=== PATIENT | female | born 1970 | race Caucasian/White ===

== ENCOUNTER 2016-07-19 06:29 | Inpatient (IN) | payer OTHER ==
[2016-07-19 07:09] LABS: Basophils % (Auto) 0.6 % (0.0-1.8); Eosinophils % (Auto) 0.7 % (0.0-4.3); Mean Corpuscular HGB Conc 32 % (30-34); Mean Corpuscular Hemoglobin 28 pg (28-32); Mean Corpuscular Volume 86 fl (79-97); Platelet Count 235 K/mm3 (140-440); Red Blood Count 4.32 M/mm3 (3.65-5.03); Red Cell Distribution Width 15.4 % (13.2-15.2); White Blood Count 7.7 K/mm3 (4.5-11.0)
[2016-07-19 07:21] LABS: INR 1.17 (0.87-1.13); Partial Thromboplastin Time 28.9 Sec. (24.2-36.6)
[2016-07-19 07:24] LABS: Anion Gap 24 mmol/L; Blood Urea Nitrogen 9 mg/dL (7-17); Carbon Dioxide 20 mmol/L (22-30); Chloride 104.4 mmol/L (98-107); Glucose 100 mg/dL (65-100); Potassium 4.1 mmol/L (3.6-5.0); Sodium 144 mmol/L (137-145)
[2016-07-19 07:25] LABS: Creatine Kinase MB 1.8 ng/mL (0.0-4.0)
[2016-07-19 07:27] LABS: Magnesium 1.6 mg/dL (1.7-2.3)
--- NOTE | 2016-07-19 09:42 | XRay Report ---
ROUTINE CHEST, TWO VIEWS: HISTORY: Difficulty in breathing. Borderline heart size. Mild pulmonary venous congestion and trace pleural effusions are identified. No consolidation or pneumothorax. Normal bony structures. IMPRESSION: Mild volume overload.
--- NOTE | 2016-07-19 09:58 | Emergency Department Report ---
ED Chest Pain HPI - General Chief Complaint: Chest Pain Stated Complaint: MISSY, CHEST PAIN Time Seen by Provider: 07/19/16 07:11 Source: patient Mode of arrival: Ambulatory Limitations: No Limitations - History of Present Illness Initial Comments: The patient complains of substernal chest pain which she describes as worsening with inspiration since . Does not radiate. It is largely aching in nature. It has been somewhat intermittent. Patient states that she has had apparent orthopnea especially at night if not PND since . She states that she has been short of breath. Her chest pain does worsen with her respiratory cycle. It doesn't particularly worsen on positional change. She states that she has not had chest pain like this before. This is her first medical encounter since the pain and dyspnea began on . She denies a history of hypertension or hyperlipidemia. Dr. Cochran spoke to her and apparently she was in the process of being worked up for lupus. I did find a rash on her leg. She stated that she had not seen a forge heater for this. I am suspicious that she may have a connective tissue disease. In any case she states that she has a significant family history of congestive heart failure with her mother dying of that diagnosis. Patient has not again been previously diagnosed with a cardiomyopathy herself nor had any prior workup for chest pain. Patient denies any leg pain. She's not had any recent long distance travel. Complaint: chest pain -: Gradual, days(s) Onset: during rest Pain Location: substernal Pain Radiation: none Severity: moderate Quality: sharp Consistency: intermittent Improves With: nothing Worsens With: inspiration re: dyspnea Other Symptoms: cough. denies: fever, syncope - Related Data Allergies Allergy/AdvReac Type Severity Reaction Status Date / Time No Known Allergies Allergy Verified 07/19/16 11:28 KRUNAL score - Krunal Score Age > 65: (0) No Aspirin use within the Past 7 Days: (0) No 3 or more CAD Risk Factors: (0) No 2 or more Angina events in past 24 hrs: (0) No Known CAD with more than 50% Stenosis: (0) No Elevated Cardiac Markers: (0) No ST Deviation Greater than 0.5mm: (1) Yes KRUNAL Score: 1 ED Review of Systems ROS: Stated complaint: MISSY, CHEST PAIN Other details as noted in HPI Constitutional: denies: chills, fever Eyes: denies: eye pain, eye discharge, vision change ENT: denies: ear pain, throat pain Respiratory: orthopnea, shortness of breath, SOB at rest. denies: cough, wheezing Cardiovascular: chest pain. denies: palpitations Endocrine: no symptoms reported Gastrointestinal: denies: abdominal pain, nausea, diarrhea Genitourinary: denies: urgency, dysuria, discharge Musculoskeletal: denies: back pain, joint swelling, arthralgia Skin: denies: rash, lesions Neurological: denies: headache, weakness, paresthesias Psychiatric: denies: anxiety, depression Hematological/Lymphatic: denies: easy bleeding, easy bruising ED Past Medical Hx - Past Medical History Previous Medical History?: No - Surgical History Past Surgical History?: No - Social History Smoking Status: Current Every Day Smoker Substance Use Type: Alcohol ED Physical Exam - General Limitations: No Limitations General appearance: alert, in no apparent distress, other - Head Head exam: Present: atraumatic, normocephalic - Eye Eye exam: Present: normal appearance. Absent: scleral icterus - ENT ENT exam: Present: mucous membranes moist - Neck Neck exam: Present: normal inspection - Respiratory Respiratory exam: Present: normal lung sounds bilaterally. Absent: respiratory distress - Cardiovascular Cardiovascular Exam: Present: regular rate, normal rhythm. Absent: systolic murmur, diastolic murmur, rubs, gallop - GI/Abdominal GI/Abdominal exam: Present: soft, normal bowel sounds. Absent: distended, tenderness, guarding, rebound, rigid, organomegaly, mass - Extremities Exam Extremities exam: Present: normal inspection. Absent: tenderness, normal capillary refill, pedal edema, joint swelling, calf tenderness - Back Exam Back exam: Present: normal inspection - Neurological Exam Neurological exam: Present: alert, oriented X3, CN II-XII intact. Absent: motor sensory deficit - Psychiatric Psychiatric exam: Present: normal affect, normal mood - Skin Skin exam: Present: warm, dry, intact, other (there are multiple annular hyperpigmented plaque type lesions of the lateral aspect of the calf and there is one patch on the back.). Absent: rash ED Course Vital Signs 07/19/16 07/19/16 07/19/16 06:29 08:49 09:41 Temperature 98.6 F Pulse Rate 118 H 113 H Respiratory 20 20 33 H Rate Blood Pressure 144/99 Blood Pressure 158/108 [Left] Blood Pressure 159/100 [Right] O2 Sat by Pulse 99 99 Oximetry 07/19/16 07/19/16 07/19/16 09:50 09:51 10:00 Temperature 98.1 F Pulse Rate 110 H 112 H 113 H Respiratory 32 H 28 H 24 Rate Blood Pressure 135/98 147/99 Blood Pressure 131/101 [Left] Blood Pressure [Right] O2 Sat by Pulse 100 99 100 Oximetry 07/19/16 07/19/16 07/19/16 10:11 10:21 10:30 Temperature Pulse Rate 115 H 114 H Respiratory 32 H 39 H 32 H Rate Blood Pressure 147/99 152/108 147/103 Blood Pressure [Left] Blood Pressure [Right] O2 Sat by Pulse 100 98 Oximetry 07/19/16 11:00 Temperature Pulse Rate Respiratory 20 Rate Blood Pressure Blood Pressure [Left] Blood Pressure [Right] O2 Sat by Pulse Oximetry - Reevaluation(s) Reevaluation #1: Patient has been reevaluated times several. She did have some persistent pain. She was treated with analgesia. I spoke to Dr. Knight the build and release manager. He stated that he would consult to see the patient. He might be a Candidate but not emergently. He did review her EKGs and found them like myself to be not consistent with STEMI. She mostly has an LVH pattern with some minimal serial variation and associated repolarization abnormalities. There is question of old anteroseptal infarct as well. Medicates the patient is improving. Remarkably her d-dimer was quite elevated. She was treated with Lovenox initially as it did seem like she was significant probability for pulmonary embolism. Her CT scan was negative for pulmonary embolism but did show congestive heart failure and small bilateral effusions. There were no infiltrates or consolidations. Gold Wheel Blocker And Polisher recommended ICU placement and a nitroglycerin drip. This has been ordered. 07/19/16 13:11 Reevaluation #2: There was certainly seem like lupus is a possibility in this patient or an autoimmune disease. She does have acute congestive heart failure. She does have persistent chest pain in this setting. She will be anticoagulated and seen by cardiology. She is admitted in stable condition. 07/19/16 13:14 ED Medical Decision Making - Lab Data Result diagrams: 07/19/16 06:45 07/19/16 06:45 Laboratory Results - last 24 hr 07/19/16 07/19/16 07/19/16 06:45 06:45 06:45 WBC 7.7 RBC 4.32 Hgb 12.0 Hct 37.0 MCV 86 MCH 28 MCHC 32 RDW 15.4 H Plt Count 235 Lymph % (Auto) 37.8 H [place] % (Auto) 8.7 H Eos % (Auto) 0.7 Baso % (Auto) 0.6 Lymph # 2.9 [place] # 0.7 Eos # 0.1 Baso # 0.0 Seg Neutrophils % 52.2 Seg Neutrophils # 4.0 PT 14.8 INR 1.17 H APTT 28.9 VBG pH Sodium 144 Potassium 4.1 Carbon Dioxide 20 L BUN 9 Creatinine 0.4 L Estimated GFR > 60 BUN/Creatinine Ratio 22.50 Glucose 100 Calcium 9.0 Magnesium Total Creatine Kinase CK-MB (CK-2) CK-MB (CK-2) Rel Index Troponin T < 0.010 HCG, Qual 07/19/16 07/19/16 07/19/16 06:45 06:45 06:45 WBC RBC Hgb Hct MCV MCH MCHC RDW Plt Count Lymph % (Auto) [place] % (Auto) Eos % (Auto) Baso % (Auto) Lymph # [place] # Eos # Baso # Seg Neutrophils % Seg Neutrophils # PT INR APTT VBG pH 7.339 Sodium Potassium Carbon Dioxide BUN Creatinine Estimated GFR BUN/Creatinine Ratio Glucose Calcium Magnesium 1.60 L Total Creatine Kinase 57 CK-MB (CK-2) 1.8 CK-MB (CK-2) Rel Index 3.1 Troponin T HCG, Qual Negative - EKG Data -: EKG Interpreted by Me EKG shows normal: sinus rhythm, axis, intervals, QRS complexes, ST-T waves Rate: normal - EKG Data Interpretation: LVH (consistent with LVH and strain pattern. There is a QS in V2 which might be related to LVH or old septal infarct) - Radiology Data Radiology results: report reviewed interpreted by me: CT with bilateral pleural effusions and congestive heart failure Critical Care Time: Yes Critical care time in (mins) excluding proc time.: 60 Critical care attestation.: If time is entered above; I have spent that time in minutes in the direct care of this critically ill patient, excluding procedure time. ED Disposition Clinical Impression: Elevated d-dimer, Hyperpigmented skin lesion, Hypomagnesemia Acute congestive heart failure Qualifiers: Congestive heart failure type: combined Qualified Code(s): I50.41 - Acute combined systolic (congestive) and diastolic (congestive) heart failure Chest pain Qualifiers: Chest pain type: chest pain on breathing Qualified Code(s): R07.1 - Chest pain on breathing Disposition: -09 OP ADMIT IP TO THIS HOSP Is pt being admited?: Yes Does the pt Need Aspirin: Yes Condition: Stable Instructions: Chest Pain (ED) Referrals: PRIMARY CARE, [Primary Care Provider] - 3-5 Days Time of Disposition: 13:16
[2016-07-19] MEDS ORDERED: ZOFRAN IV ONE (10:15)
[2016-07-19] MEDS ORDERED: MORPHINE IV ONE ×2 (10:15→11:28)
[2016-07-19] MEDS ORDERED: LOVENOX SUB-Q ONE (10:16)
--- NOTE | 2016-07-19 10:20 | XRay Report ---
AP CHEST: HISTORY: Chest pain Mild improvement in vascular congestion and trace pleural effusions demonstrated since earlier today at 0732 hours. Heart size remains borderline. No new acute process is appreciated. IMPRESSION: Mild improvement in congestive changes.
--- NOTE | 2016-07-19 11:00 | Cat Scan Report ---
CTA CHEST: History: Substernal chest pain, tachycardia. Technique: Helical CT following IV contrast. Pulmonary embolus protocol. Sagittal and coronal reformatted images. Rotational MIP images. Findings: Contrast bolus is satisfactory. No pulmonary embolus is identified. There is mild cardiomegaly. Small bilateral pleural effusions are identified, right greater than left. There are mild congestive changes in the lower lung zones. No consolidation, mass or pneumothorax. The thyroid gland, tracheobronchial tree, esophagus, pericardium, aorta and bony thorax are unremarkable. Impression: No pulmonary embolus is identified. Findings most compatible with mild CHF.
[2016-07-19] MEDS ORDERED: NITRO-BID 2% TP ONE (11:25)
[2016-07-19] MEDS ORDERED: LASIX IV ONE (11:25)
[2016-07-19] MEDS ORDERED: ASPIRIN PO ONE (11:40)
[2016-07-19] MEDS ORDERED: TRIDIL DRIP 50MG/250ML 50 MG/250 ML BOTTLE IV ONE (11:50)
--- NOTE | 2016-07-19 12:09 | History and Physical Report ---
History of Present Illness Chief complaint: My chest hurts History of present illness: 46 YO Female with Nicotine Dependence, Lupus(suspected) presents to ED for evaluation. Pt states that she has been experiencing pain in her chest for the past 3 days with worsening symptoms over the past 12 hours. Pt states that pain is substernal, 7/10, nonradiating, achy, intermittent in duration, not worsened with exertion, or relieved with rest. Patient acknowledges shortness of breath, orthopnea but denies PND, prolonged immobility/travel, leg swelling, calf pain, individual/family history of DVT/PE, hemoptysis, trauma, productive cough, unintentional weight loss, night sweats, bone pain. Past History Past Medical History: other (nicotine dependence, ) Past Surgical History: No surgical history, Other (reviewed) Social history: , lives with family, smoking. denies: alcohol abuse, prescription drug abuse, IV drug use Family history: hypertension, other (lupus) Medications and Allergies Allergies Allergy/AdvReac Type Severity Reaction Status Date / Time No Known Allergies Allergy Verified 07/19/16 11:28 Home Medications Medication Instructions Recorded Confirmed Last Taken Type No Known Home Medications [No 07/19/16 07/19/16 Unknown History Reported Home Medications] Active Meds: Active Medications Nitroglycerin/Dextrose (Tridil Drip 50mg/250ml) 50 mg in 250 mls @ 3 mls/hr IV TITR ONE; 10 MCG/MIN PRN Reason: Protocol Stop: 07/22/16 23:09 Magnesium Oxide (Mag-Ox) 400 mg PO QDAY GUALBERTO Review of Systems All systems: negative Cardiovascular: chest pain, orthopnea, shortness of breath Exam - Constitutional Vitals: Temp Pulse Resp BP Pulse Ox 98.1 F 114 H 20 147/103 98 07/19/16 09:50 07/19/16 10:21 07/19/16 11:00 07/19/16 10:30 07/19/16 10:21 General appearance: Present: mild distress - EENT Eyes: Present: PERRL ENT: hearing intact, clear oral mucosa - Neck Neck: Present: supple, normal ROM - Respiratory Respiratory effort: normal Respiratory: bilateral: diminished - Cardiovascular Rhythm: regular Heart Sounds: Present: S1 & S2 - Extremities Extremities: pulses symmetrical, No edema Peripheral Pulses: within normal limits - Abdominal General gastrointestinal: Present: soft, non-tender, non-distended, normal bowel sounds Female genitourinary: Present: normal - Integumentary Integumentary: Present: clear, warm, dry - Musculoskeletal Musculoskeletal: gait normal, strength equal bilaterally - Psychiatric Psychiatric: appropriate mood/affect, intact judgment & insight, agitated, other (anxious) - Neurologic Neurologic: CNII-XII intact, moves all extremities Results - Labs CBC & Chem 7: 07/19/16 12:29 07/19/16 06:45 Labs: Abnormal lab results 07/19/16 07/19/16 07/19/16 Range/Units 06:45 06:45 06:45 RDW 15.4 H (13.2-15.2) % Lymph % (Auto) 37.8 H (13.4-35.0) % [place] % (Auto) 8.7 H (0.0-7.3) % INR 1.17 H (0.87-1.13) D-Dimer (0-234) ng/mlDDU Carbon Dioxide 20 L (22-30) mmol/L Creatinine 0.4 L (0.7-1.2) mg/dL Magnesium (1.7-2.3) mg/dL NT-Pro-B Natriuret Pep (0-450) pg/mL 07/19/16 07/19/16 07/19/16 Range/Units 06:45 06:45 11:23 RDW (13.2-15.2) % Lymph % (Auto) (13.4-35.0) % [place] % (Auto) (0.0-7.3) % INR (0.87-1.13) D-Dimer 1205.69 H (0-234) ng/mlDDU Carbon Dioxide (22-30) mmol/L Creatinine (0.7-1.2) mg/dL Magnesium 1.60 L (1.7-2.3) mg/dL NT-Pro-B Natriuret Pep 5374 H (0-450) pg/mL Assessment and Plan - Patient Problems (1) NSTEMI (non-ST elevated myocardial infarction) Current Visit: Yes Status: Acute Plan to address problem: Cardiology consulted, Pt admitted to ICU, nitro drip, heparin drip, echo, supportive care, further intervention as per cardiology team. The high probability of a clinically significant, sudden or life threatening deterioration of the [cardiac, pulmonary] system(s) required my full and direct attention, intervention and personal management. The aggregate critical care time was [65] minutes. This time is in addition to time spent performing reported procedures but includes the following: [x] Data Review and interpretation [x] Patient assessment and monitoring of vital signs [x] Documentation [x] Medication orders and management (2) CHF (congestive heart failure) Current Visit: Yes Status: Acute Qualifiers: Congestive heart failure type: C Congestive heart failure chronicity: C Plan to address problem: CHF protocol: Cardiology team consulted, fluid restriction, serial cardiac enzymes, ekg, daily weight, uop q shift (3) Accelerated hypertension Current Visit: Yes Status: Acute Plan to address problem: monitor bp q shift, (4) Acute respiratory failure Current Visit: Yes Status: Acute Qualifiers: Respiratory failure complication: R Plan to address problem: supplemental oxygen, nebs, aspiration precautions, supportive care, pulmonary toilet, NIPPV as clinically indicated. (5) Lupus (systemic lupus erythematosus) Current Visit: Yes Status: Suspected Qualifiers: Systemic lupus erythematosus type: S Systemic lupus erythematosus organ involvement: S Plan to address problem: ANS, Anti DS DNA, Anti [facility] Ab (6) DVT prophylaxis Current Visit: Yes Status: Acute
[2016-07-19] MEDS ORDERED: DULCOLAX PR PRN (12:19)
[2016-07-19] MEDS ORDERED: ALUM-MAG HYDROX-SIMETH 200-200-20MG/5ML PO PRN (12:19)
[2016-07-19] MEDS ORDERED: MILK OF MAGNESIA PO PRN (12:19)
[2016-07-19 12:58] LABS: Hemoglobin 11.4 gm/dl (10.1-14.3)
[2016-07-19 13:10] LABS: INR 1.26 (0.87-1.13); Partial Thromboplastin Time 35.1 Sec. (24.2-36.6)
[2016-07-19] MEDS: MAG-OX PO SCH (13:52)
[2016-07-19] MEDS ORDERED: ATIVAN IV ONE (14:29)
[2016-07-19] MEDS: MORPHINE IV PRN ×2 (16:02→20:18)
[2016-07-19 16:20] LABS: Creatine Kinase MB 1.6 ng/mL (0.0-4.0)
[2016-07-19 16:21] LABS: Creatine Kinase 48 units/L (30-135)
[2016-07-19] MEDS ORDERED: HEPARIN/ 0.45% NACL-25,000 UNIT/500 ML 25,000 UNIT/500 ML BAG ONE (16:22)
[2016-07-19] MEDS ORDERED: HEPARIN ONE (16:23)
[2016-07-19] MEDS ORDERED: HEPARIN 10,000 UNITS/10 ML ONE (16:46)
[2016-07-19] MEDS ORDERED: HEPARIN 10,000 UNITS/10 ML IV ONE (16:46)
--- NOTE | 2016-07-19 17:01 | Admit Criteria Form ---
Admission Criteria Documentation: HEART FAILURE: COMMON COMPLICATIONS Clinical Indications for Inpatient Care (Place 'X' for any and all applicable criteria): Ongoing inpatient care may be indicated for heart failure with ANY ONE of the following (1)(2)(3)(4)(5): [ ]I. Ongoing need for care for primary condition requiring frequent therapy adjustments because of changes in cardiac function (eg, drug dosage changes for drugs that are renally metabolized) [ ]II. New-onset heart failure [ ]III. Heart failure with decreased urine output not responsive to attempts to optimize volume status [ ]IV. Acute cardiac ischemia causing or associated with failure [ X]V. Complications of heart failure, including ANY ONE of the following: [ ]a) Pericardial effusion [ ]b) Symptomatic pleural effusion [ ]c) O2 saturation <90% or PO2 < 60 mm Hg (8.0 kPa) on room air or require baseline supplemental O2 [ ]d) Tachypnea [ X]e) Dyspnea [ ]f) Syncope [ ]g) Change in mental status [ ]h) Acute renal insufficiency that is severe (reduction of more than 50% in estimated glomerular filtration rate from baseline) or progressive reduction of more than 25% in estimated glomerular filtration rate from baseline, with creatinine continuing to rise) [ ]i) Hemodynamic instability [ ]j) Anasarca [ ]k) Clinically significant metabolic abnormalities due to heart failure (eg, new-onset metabolic acidosis) Extended stay beyond goal length of stay for primary condition may be needed until ALL of the following are present(1)(3): [ ]a) Stable and effective diuretic regimen established (or patient on stable dialysis regimen if in chronic renal failure) [ ]b) Breathing comfortably at rest [ ]c) Saturation of arterial oxygen greater than 90% or at acceptable baseline [ ]d) Pulmonary edema absent or improved [ ]e) Hemodynamic stability [ ]f) Volume status acceptable on oral medication [ ]g) Peripheral or sacral edema absent or improved [ ]h) Renal function stable and manageable at a lower level of care [ ]i) Complications (eg, pleural effusion) resolved or manageable at a lower level of care [ ]j) Patient or caregiver has received written discharge instructions or educational material addressing activity level, diet, discharge medications, follow-up appointment, weight monitoring, and what to do if symptoms worsen The original [employer] content created by [employer] has been revised. The portions of the content which have been revised are identified through the use of italic text or in bold, and [facility] has neither reviewed nor approved the modified material.All other unmodified content is copyright [facility]. Please see references footnoted in the original [facility] edition 2016 Admission Criteria Met: Yes
[2016-07-19] MEDS: HEPARIN/ 0.45% NACL-25,000 UNIT/500 ML 25,000 UNIT/500 ML BAG IV SCH (18:12)
[2016-07-19 21:06] LABS: Creatine Kinase MB 1.5 ng/mL (0.0-4.0)
[2016-07-19 21:07] LABS: Creatine Kinase 40 units/L (30-135)
--- NOTE | 2016-07-20 08:53 | Progress Note ---
Assessment and Plan Assessment and plan: Chest pain with abnormal EKG. Troponins normal. Cardiology consulted. Aspirin. Tachycardia. Will start low dose Metoprolol DVT prophylaxis History Interval history: Chest pain, Tachycardia Hospitalist Physical - Constitutional Vitals: Temp Pulse Resp BP Pulse Ox 98.8 F 110 H 18 148/94 99 07/20/16 08:00 07/20/16 04:00 07/20/16 04:00 07/19/16 17:01 07/20/16 07:20 General appearance: Present: no acute distress - EENT ENT: hearing intact - Neck Neck: Present: supple - Respiratory Respiratory: bilateral: CTA - Cardiovascular Rhythm: regular Heart Sounds: Present: S1 & S2 (S1 and S2 tachy) - Extremities Extremities: No edema - Abdominal General gastrointestinal: soft, non-distended, normal bowel sounds - Psychiatric Psychiatric: appropriate mood/affect, intact judgment & insight - Neurologic Neurologic: moves all extremities, other (AAO x 3) Results - Labs CBC & Chem 7: 07/19/16 12:29 07/19/16 06:45 Labs: Laboratory Last Values WBC 7.7 K/mm3 (4.5-11.0) 07/19/16 06:45 RBC 4.32 M/mm3 (3.65-5.03) 07/19/16 06:45 Hgb 11.4 gm/dl (10.1-14.3) 07/19/16 12:29 Hct 35.0 % (30.3-42.9) 07/19/16 12:29 MCV 86 fl (79-97) 07/19/16 06:45 MCH 28 pg (28-32) 07/19/16 06:45 MCHC 32 % (30-34) 07/19/16 06:45 RDW 15.4 % (13.2-15.2) H 07/19/16 06:45 Plt Count 229 K/mm3 (140-440) 07/19/16 12:29 Lymph % (Auto) 37.8 % (13.4-35.0) H 07/19/16 06:45 [place] % (Auto) 8.7 % (0.0-7.3) H 07/19/16 06:45 Eos % (Auto) 0.7 % (0.0-4.3) 07/19/16 06:45 Baso % (Auto) 0.6 % (0.0-1.8) 07/19/16 06:45 Lymph # 2.9 K/mm3 (1.2-5.4) 07/19/16 06:45 [place] # 0.7 K/mm3 (0.0-0.8) 07/19/16 06:45 Eos # 0.1 K/mm3 (0.0-0.4) 07/19/16 06:45 Baso # 0.0 K/mm3 (0.0-0.1) 07/19/16 06:45 Seg Neutrophils % 52.2 % (40.0-70.0) 07/19/16 06:45 Seg Neutrophils # 4.0 K/mm3 (1.8-7.7) 07/19/16 06:45 PT 15.7 Sec. (12.2-14.9) H 07/19/16 12:29 INR 1.26 (0.87-1.13) H 07/19/16 12:29 APTT 35.1 Sec. (24.2-36.6) 07/19/16 12:29 D-Dimer 1205.69 ng/mlDDU (0-234) H 07/19/16 06:45 Heparin Anti-Xa Level 0.60 U.I./ml (0.3-0.7) 07/19/16 22:55 VBG pH 7.339 (7.320-7.420) 07/19/16 06:45 Sodium 144 mmol/L (137-145) 07/19/16 06:45 Potassium 4.1 mmol/L (3.6-5.0) 07/19/16 06:45 Carbon Dioxide 20 mmol/L (22-30) L 07/19/16 06:45 BUN 9 mg/dL (7-17) 07/19/16 06:45 Creatinine 0.4 mg/dL (0.7-1.2) L 07/19/16 06:45 Estimated GFR > 60 ml/min 07/19/16 06:45 BUN/Creatinine Ratio 22.50 % 07/19/16 06:45 Glucose 100 mg/dL (65-100) 07/19/16 06:45 Calcium 9.0 mg/dL (8.4-10.2) 07/19/16 06:45 Magnesium 1.60 mg/dL (1.7-2.3) L 07/19/16 06:45 Total Creatine Kinase 40 units/L (30-135) 07/19/16 20:37 CK-MB (CK-2) 1.5 ng/mL (0.0-4.0) 07/19/16 20:37 CK-MB (CK-2) Rel Index 3.7 (0-4) 07/19/16 20:37 Troponin T < 0.010 ng/mL (0.00-0.029) 07/19/16 20:37 NT-Pro-B Natriuret Pep 5374 pg/mL (0-450) H 07/19/16 11:23 HCG, Qual Negative (Negative) 07/19/16 06:45
[2016-07-20] MEDS: MORPHINE IV PRN (09:38)
[2016-07-20] MEDS: MAG-OX PO SCH (09:40)
--- NOTE | 2016-07-20 11:02 | Consultation ---
History of Present Illness Consult date: 07/20/16 Reason for consult: dyspnea, chest pain History of present illness: 46-year-old -[place] female that presented to the ER with history of breast chest pain episodes associated with dyspnea for the past 2 weeks. She reports worsening with retrosternal pressure stabbing pain the day of admission. Also these are per exertional routine activities. There appears to be orthopnea of 2 pillows and she does report some lower extremity swelling. Some cough which was nonproductive, the patient denies hemoptysis. No fevers chills. She had been treatment for a rash probably her leg. She denies any prior cardiac or respiratory history. However, she is a smoker for over 20 years, one packs years per day. Complains also unconfirmed bipolar disorder. The patient was admitted for her further treatment and were asked to see since she is in the ICU. Pending cardiology reevaluation this morning. Past History Past Medical History: other (nicotine dependence, ) Past Surgical History: No surgical history, Other (reviewed) Social history: , lives with family, smoking. denies: alcohol abuse, prescription drug abuse, IV drug use Family history: hypertension, other (lupus) Medications and Allergies Allergies Allergy/AdvReac Type Severity Reaction Status Date / Time No Known Allergies Allergy Verified 07/19/16 11:28 Home Medications Medication Instructions Recorded Confirmed Last Taken Type Quetiapine Fumarate [SEROquel XR] 600 mg PO QHS 07/19/16 07/19/16 Unknown History Active Meds: Active Medications Al Hydrox/Mg Hydrox/Simethicone (Alum-Mag Hydrox-Simeth [id number]/5ml) 30 ml PO Q4H PRN PRN Reason: Indigestion Aspirin (Ecotrin) 325 mg PO QDAY GUALBERTO Bisacodyl (Dulcolax) 10 mg PA QDAY PRN PRN Reason: constipation unrelieved by MOM Furosemide (Lasix) 40 mg IV Q12HR GUALBERTO Nitroglycerin/Dextrose (Tridil Drip 50mg/250ml) 50 mg in 250 mls @ 3 mls/hr IV TITR ONE; 10 MCG/MIN PRN Reason: Protocol Stop: 07/22/16 23:09 Last Titration: 07/19/16 22:00 Dose: 23 mcg/min, 6.9 mls/hr Heparin Sodium/Sodium Chloride (Heparin/ 0.45% Nacl-25,000 Unit/500 Ml) 25,000 unit in 500 mls @ 21 mls/hr IV TITR GUALBERTO; 1,050 UNITS/HR PRN Reason: Protocol Last Admin: 07/19/16 18:12 Dose: 1,050 units/hr, 21 mls/hr Magnesium Hydroxide (Milk Of Magnesia) 30 ml PO Q4H PRN PRN Reason: Constipation Magnesium Oxide (Mag-Ox) 400 mg PO QDAY GUALBERTO Last Admin: 07/20/16 09:40 Dose: 400 mg Morphine Sulfate (Morphine) 1 mg IV Q4H PRN PRN Reason: Pain , Severe (7-10) Last Admin: 07/20/16 09:38 Dose: 1 mg Review of Systems Constitutional: fatigue, no fever, no chills, no sweats, no night sweats, no daytime sleepiness Cardiovascular: chest pain, orthopnea, palpitations, rapid/irregular heart beat , edema, syncope, lightheadedness, shortness of breath, dyspnea on exertion Respiratory: cough, shortness of breath, dyspnea on exertion, no hemoptysis, no congestion, no wheezing, no pleurisy Gastrointestinal: no abdominal pain, no nausea, no vomiting, no diarrhea, no constipation Integumentary: rash Neurological: no head injury, no transient paralysis, no paralysis, no weakness , no parathesias, no numbness, no tingling Endocrine: no cold intolerance, no heat intolerance, no polyphagia, no excessive thirst Hematologic/Lymphatic: no easy bruising, no easy bleeding, no lymphadenopathy, no lymphedema, no thrombophilia Physical Examination Vital signs: Vital Signs Temp Pulse Resp BP Pulse Ox 98.6 F 118 H 20 159/100 99 07/19/16 06:29 07/19/16 06:29 07/19/16 06:29 07/19/16 06:29 07/19/16 06:29 General appearance: no acute distress, alert Eyes: non-icteric ENT: oropharynx moist, other (Mallampati 3) Effort: normal Ascultation: Right: rales (base), Bilateral: diminished breath sounds Cardiovascular: regular rate and rhythm Gastrointestinal: normoactive bowel sounds, non-distended Integumentary: normal Extremities: no cyanosis, no edema Musculoskeletal: no deformities normal mental status, non-focal exam, pupils equal and round, CN II-XII normal, motor strength normal and mood appropriate, affect normal Results - Laboratory Findings CBC and BMP: 07/19/16 12:29 07/19/16 06:45 PT/INR, D-dimer PT 15.7 Sec. (12.2-14.9) H 07/19/16 12:29 INR 1.26 (0.87-1.13) H 07/19/16 12:29 D-Dimer 1205.69 ng/mlDDU (0-234) H 07/19/16 06:45 - Diagnostic Findings Chest x-ray: report reviewed CT scan - chest: report reviewed Assessment and Plan Non-STEMI Congestive heart failure with acute exacerbation. Elevated BMP, chest CTA consistent with CHF, no PE . EKG reportedly shows sinus tachycardia, LVH with strain Tobacco abuse Recommendations Continue gentle diuretics Oxygen support if desaturation noted. Currently normal (99%) on room air Echocardiogram Cardiology evaluation DVT prophylaxis Smoking cessation discussed Albuterol 2.5 mg nebulizations every 6 hours if wheezing or additional chest congestion noted. Thanks we'll follow. Findings discussed with the patient and her . Critical care time was 40 minutes of [id number] evaluation and coordination of care.
--- NOTE | 2016-07-20 12:40 | Consultation ---
History of Present Illness Consult date: 07/20/16 Consult reason: chest pain History of present illness: The patient is a 46-year-old woman with no prior cardiac history. She is a chronic tobacco abuser. She presented to the hospital with intermittent chest pain and her ECGs on presentation did show a non-specific ST depression is V5 and V6. Serial sets of cardiac isoenzymes were normal. There was no old EKG for comparison. Cardiac consultation was requested. On my evaluation, I find the patient to have a mild sinus tachycardia. In addition, she is mildly anxious and appears to have significant proptosis of both eyes. She is unaware of any history of prior thyroid disease. Currently there is no further chest pain or shortness of breath. Past History Past Medical History: hypertension, other (nicotine dependence, ) Past Surgical History: No surgical history, Other (reviewed) Social history: , lives with family, smoking. denies: alcohol abuse, prescription drug abuse, IV drug use Family history: hypertension, other (lupus) Medications and Allergies Allergies Allergy/AdvReac Type Severity Reaction Status Date / Time No Known Allergies Allergy Verified 07/19/16 11:28 Home Medications Medication Instructions Recorded Confirmed Last Taken Type Quetiapine Fumarate [SEROquel XR] 600 mg PO QHS 07/19/16 07/19/16 Unknown History Active Meds: Active Medications Al Hydrox/Mg Hydrox/Simethicone (Alum-Mag Hydrox-Simeth [phone]/5ml) 30 ml PO Q4H PRN PRN Reason: Indigestion Aspirin (Ecotrin) 325 mg PO QDAY GUALBERTO Bisacodyl (Dulcolax) 10 mg OR QDAY PRN PRN Reason: constipation unrelieved by MOM Furosemide (Lasix) 40 mg IV Q12HR GUALBERTO Nitroglycerin/Dextrose (Tridil Drip 50mg/250ml) 50 mg in 250 mls @ 3 mls/hr IV TITR ONE; 10 MCG/MIN PRN Reason: Protocol Stop: 07/22/16 23:09 Last Titration: 07/19/16 22:00 Dose: 23 mcg/min, 6.9 mls/hr Heparin Sodium/Sodium Chloride (Heparin/ 0.45% Nacl-25,000 Unit/500 Ml) 25,000 unit in 500 mls @ 21 mls/hr IV TITR GUALBERTO; 1,050 UNITS/HR PRN Reason: Protocol Last Admin: 07/19/16 18:12 Dose: 1,050 units/hr, 21 mls/hr Magnesium Hydroxide (Milk Of Magnesia) 30 ml PO Q4H PRN PRN Reason: Constipation Magnesium Oxide (Mag-Ox) 400 mg PO QDAY GUALBERTO Last Admin: 07/20/16 09:40 Dose: 400 mg Morphine Sulfate (Morphine) 1 mg IV Q4H PRN PRN Reason: Pain , Severe (7-10) Last Admin: 07/20/16 09:38 Dose: 1 mg Review of Systems Ears, nose, mouth and throat: other (proptosis of both eyes) Cardiovascular: chest pain, shortness of breath, no orthopnea, no palpitations, no rapid/irregular heart beat, no edema, no syncope, no lightheadedness Physical Examination Vital Signs Temp Pulse Resp BP Pulse Ox 98.6 F 118 H 20 159/100 99 07/19/16 06:29 07/19/16 06:29 07/19/16 06:29 07/19/16 06:29 07/19/16 06:29 General appearance: no acute distress, other (anxious appearing) HEENT: Positive: PERRL Neck: Positive: neck supple Cardiac: Positive: Regular Rhythm Lungs: Positive: Decreased Breath Sounds Neuro: Positive: Grossly Intact Abdomen: Positive: Soft Female genitourinary: deferred Skin: Positive: Clear Extremities: Absent: edema Results 07/19/16 12:29 07/19/16 06:45 Cardiac Enzymes 07/19/16 Range/Units 20:37 CK-MB (CK-2) 1.5 (0.0-4.0) ng/mL EKG interpretations - Telemetry EKG Rhythm: Sinus Tachycardia Assessment and Plan - Patient Problems (1) Tachycardia Current Visit: Yes Status: Acute Plan to address problem: Patient has a sinus tachycardia, appears anxious and has marked proptosis of both eyes. Recommend thyroid function tests to evaluate for hyperthyroidism. (2) Chest pain Current Visit: Yes Status: Acute Qualifiers: Chest pain type: chest pain on breathing Ischemic chest pain type: I Qualified Code(s): R07.1 - Chest pain on breathing Plan to address problem: Patient has chest pain, which is somewhat atypical, but ECG is abnormal with lateral ST depression. Cardiac enzymes are negative. We will plan for early invasive assessment with a cardiac catheterization in the morning, once her thyroid status is properly assessed.\ Echocardiogram for left ventricle function assessment.
[2016-07-20] MEDS: LASIX IV SCH ×2 (14:07→22:41)
[2016-07-20] MEDS: ECOTRIN PO SCH (14:07)
[2016-07-20] MEDS: TYLENOL PO PRN (17:13)
--- NOTE | 2016-07-20 17:34 | Event Note ---
Date: 07/20/16 Unsurprisingly, patient's TSH level is <0.005 consistent with our suspicion of a hyperthyroid state based on her clinical appearance. We will defer invasive cardiac evaluation for now, AND recommend to the medical service for patient to undergo further management of severe hyperthyroidism.
[2016-07-20] MEDS ORDERED: MAGNESIUM SULFATE 3 GM in NACL 0.9% 100 ML IV ONE (20:00)
[2016-07-20] MEDS: HEPARIN/ 0.45% NACL-25,000 UNIT/500 ML 25,000 UNIT/500 ML BAG IV SCH (20:46)
[2016-07-20] MEDS: TAPAZOLE PO SCH (22:42)
[2016-07-21] MEDS: AMBIEN PO PRN ×2 (00:52→22:02)
[2016-07-21 05:12] LABS: Anion Gap 20 mmol/L; Blood Urea Nitrogen 11 mg/dL (7-17); Calcium 9.3 mg/dL (8.4-10.2); Carbon Dioxide 25 mmol/L (22-30); Chloride 95.6 mmol/L (98-107); Glucose 124 mg/dL (65-100); Potassium 3.5 mmol/L (3.6-5.0); Sodium 137 mmol/L (137-145)
[2016-07-21] MEDS: TAPAZOLE PO SCH ×3 (05:16→22:02)
[2016-07-21 05:21] LABS: Hematocrit 40.5 % (30.3-42.9); Hemoglobin 13.1 gm/dl (10.1-14.3)
[2016-07-21 05:28] LABS: INR 1.09 (0.87-1.13)
[2016-07-21] MEDS ORDERED: NACL 0.9% 1000 ML 1,000 ML ONE (05:56)
[2016-07-21] MEDS ORDERED: NACL 0.9% 1000 ML 1,000 ML IV SCH (07:00)
[2016-07-21] MEDS: LOPRESSOR PO SCH ×2 (10:35→22:03)
[2016-07-21] MEDS: LASIX IV SCH ×2 (10:37→22:04)
[2016-07-21] MEDS: TYLENOL PO PRN (10:37)
[2016-07-21] MEDS: ECOTRIN PO SCH (10:37)
[2016-07-21] MEDS: MAG-OX PO SCH (10:37)
--- NOTE | 2016-07-21 10:55 | Progress Note ---
Assessment and Plan Non-STEMI . No intervention planned at this point, see cardiology notes. Congestive heart failure with acute exacerbation. Tobacco abuse Hypothyroidism. Recommendations Oxygen support if desaturation noted. Currently normal on room air Echocardiogram Cardiology f/u evaluation DVT prophylaxis Albuterol 2.5 mg nebulizations every 6 hours if wheezing or additional chest congestion noted. Currently clear Status discussed with the patient and her . She continued to do well, she can be transferred outside to telemetry later on. This indicates agreeable with cardiology. Status of thyroid replacement therapy to be discussed later with cardiology, internal medicine and endocrinology; in the context of recent cardiac events. We'll continue to monitor and sign off when she is outside the ICU. Critical care time was 40 minutes of [id number] evaluation and coordination of care. Subjective Date of service: 07/21/16 Interval history: Reports no respiratory complaints. She denies any chest pain at this time. Objective Vital Signs - 12hr 07/21/16 07/21/16 07/21/16 00:00 00:50 01:00 Temperature 98.3 F Pulse Rate 104 H 103 H Pulse Rate [ 104 H From Monitor] Pulse Rate [ 104 H Right Radial] Respiratory 24 23 21 Rate Respiratory Rate [Chest] Blood Pressure 142/88 123/88 O2 Sat by Pulse 98 98 99 Oximetry 07/21/16 07/21/16 07/21/16 01:10 01:20 01:30 Temperature Pulse Rate 109 H 104 H 102 H Pulse Rate [ From Monitor] Pulse Rate [ Right Radial] Respiratory 24 24 22 Rate Respiratory Rate [Chest] Blood Pressure 123/88 123/88 121/78 O2 Sat by Pulse 99 98 98 Oximetry 07/21/16 07/21/16 07/21/16 01:40 01:43 01:50 Temperature Pulse Rate 105 H 107 H Pulse Rate [ 108 H From Monitor] Pulse Rate [ 102 H Right Radial] Respiratory 21 26 H 21 Rate Respiratory Rate [Chest] Blood Pressure 123/88 123/88 O2 Sat by Pulse 98 99 98 Oximetry 07/21/16 07/21/16 07/21/16 02:00 02:10 02:20 Temperature Pulse Rate 109 H 117 H Pulse Rate [ From Monitor] Pulse Rate [ Right Radial] Respiratory 23 24 23 Rate Respiratory Rate [Chest] Blood Pressure 123/88 125/71 125/71 O2 Sat by Pulse 99 99 97 Oximetry 0607/21/16 07/21/16 02:30 02:40 02:50 Temperature Pulse Rate 97 H 104 H 105 H Pulse Rate [ From Monitor] Pulse Rate [ Right Radial] Respiratory 20 21 22 Rate Respiratory Rate [Chest] Blood Pressure 112/74 112/74 112/74 O2 Sat by Pulse 99 99 98 Oximetry 07/21/16 07/21/16 07/21/16 03:00 03:10 03:20 Temperature Pulse Rate 98 H 98 H 100 H Pulse Rate [ From Monitor] Pulse Rate [ Right Radial] Respiratory 21 23 22 Rate Respiratory Rate [Chest] Blood Pressure 126/78 126/78 126/78 O2 Sat by Pulse 98 99 99 Oximetry 07/21/16 07/21/16 07/21/16 03:30 03:40 03:50 Temperature Pulse Rate 97 H 108 H 101 H Pulse Rate [ From Monitor] Pulse Rate [ Right Radial] Respiratory 15 28 H 23 Rate Respiratory Rate [Chest] Blood Pressure 124/79 124/79 124/79 O2 Sat by Pulse 100 100 Oximetry 07/21/16 07/21/16 07/21/16 04:00 04:10 04:20 Temperature Pulse Rate 106 H 102 H 94 H Pulse Rate [ From Monitor] Pulse Rate [ Right Radial] Respiratory 22 22 20 Rate Respiratory Rate [Chest] Blood Pressure 131/90 131/90 131/90 O2 Sat by Pulse 98 99 99 Oximetry 07/21/16 07/21/16 07/21/16 04:30 04:40 04:50 Temperature Pulse Rate 98 H 98 H 97 H Pulse Rate [ From Monitor] Pulse Rate [ Right Radial] Respiratory 21 21 21 Rate Respiratory Rate [Chest] Blood Pressure 131/90 131/90 131/90 O2 Sat by Pulse 98 98 98 Oximetry 07/21/16 07/21/16 07/21/16 05:00 05:10 05:20 Temperature Pulse Rate 102 H 100 H 98 H Pulse Rate [ From Monitor] Pulse Rate [ Right Radial] Respiratory 22 20 24 Rate Respiratory Rate [Chest] Blood Pressure 131/90 131/90 118/81 O2 Sat by Pulse 97 100 99 Oximetry 07/21/16 07/21/16 07/21/16 05:30 05:40 05:50 Temperature Pulse Rate 101 H 105 H 105 H Pulse Rate [ From Monitor] Pulse Rate [ Right Radial] Respiratory 23 22 28 H Rate Respiratory Rate [Chest] Blood Pressure 119/86 119/86 119/86 O2 Sat by Pulse 98 98 Oximetry 07/21/16 07/21/16 07/21/16 06:00 06:10 06:20 Temperature Pulse Rate 97 H 104 H 100 H Pulse Rate [ From Monitor] Pulse Rate [ Right Radial] Respiratory 17 22 21 Rate Respiratory Rate [Chest] Blood Pressure 130/81 130/81 130/81 O2 Sat by Pulse 100 100 98 Oximetry 07/21/16 07/21/16 07/21/16 06:30 06:40 06:50 Temperature Pulse Rate 95 H 98 H 99 H Pulse Rate [ From Monitor] Pulse Rate [ Right Radial] Respiratory 21 22 22 Rate Respiratory Rate [Chest] Blood Pressure 129/81 129/81 130/81 O2 Sat by Pulse 99 98 98 Oximetry 07/21/16 07/21/16 07/21/16 07:00 07:10 07:20 Temperature Pulse Rate 98 H 97 H 101 H Pulse Rate [ From Monitor] Pulse Rate [ Right Radial] Respiratory 21 20 26 H Rate Respiratory Rate [Chest] Blood Pressure 117/80 117/80 129/81 O2 Sat by Pulse 97 98 100 Oximetry 07/21/16 07/21/16 07/21/16 07:30 07:40 07:50 Temperature Pulse Rate 95 H 101 H 103 H Pulse Rate [ From Monitor] Pulse Rate [ Right Radial] Respiratory 17 20 23 Rate Respiratory Rate [Chest] Blood Pressure 129/81 129/81 117/80 O2 Sat by Pulse 98 97 99 Oximetry 07/21/16 07/21/16 07/21/16 08:00 08:10 08:20 Temperature 98.4 F Pulse Rate 98 H 107 H 105 H Pulse Rate [ 98 H From Monitor] Pulse Rate [ Right Radial] Respiratory 18 19 32 H Rate Respiratory Rate [Chest] Blood Pressure 112/68 112/68 112/68 O2 Sat by Pulse 100 97 98 Oximetry 07/21/16 07/21/16 07/21/16 08:30 08:34 08:40 Temperature Pulse Rate 95 H 102 H Pulse Rate [ From Monitor] Pulse Rate [ Right Radial] Respiratory 25 H 18 Rate Respiratory Rate [Chest] Blood Pressure 112/68 120/75 O2 Sat by Pulse 100 99 98 Oximetry 07/21/16 07/21/16 07/21/16 08:50 09:00 10:00 Temperature Pulse Rate 104 H 102 H Pulse Rate [ From Monitor] Pulse Rate [ Right Radial] Respiratory 18 30 H Rate Respiratory 21 Rate [Chest] Blood Pressure 120/75 124/88 O2 Sat by Pulse 98 99 Oximetry 07/21/16 07/21/16 10:35 10:37 Temperature Pulse Rate 102 H Pulse Rate [ From Monitor] Pulse Rate [ Right Radial] Respiratory 28 H Rate Respiratory Rate [Chest] Blood Pressure 105/79 O2 Sat by Pulse Oximetry Constitutional: no acute distress, alert Eyes: non-icteric, other (exophthalmus) ENT: oropharynx moist, other (Mallampati 3) Effort: normal Ascultation: Bilateral: clear, diminished breath sounds Cardiovascular: regular rate and rhythm Gastrointestinal: normoactive bowel sounds, non-distended Integumentary: normal Extremities: no cyanosis, no edema Neurologic: normal mental status, non-focal exam, pupils equal and round, CN II- XII normal, motor strength normal and Psychiatric: mood appropriate, affect normal CBC and BMP: 07/21/16 04:21 07/21/16 04:21 ABG, PT/INR, D-dimer: PT/INR, D-dimer PT 14.0 Sec. (12.2-14.9) 07/21/16 04:21 INR 1.09 (0.87-1.13) 07/21/16 04:21 D-Dimer 1205.69 ng/mlDDU (0-234) H 07/19/16 06:45 Abnormal lab findings: Abnormal Labs 07/20/16 07/20/16 07/20/16 13:46 13:46 13:46 Heparin Anti-Xa Level Potassium Chloride Creatinine Glucose POC Glucose TSH < 0.005 L Free T4 6.94 H Thyroxine (T4) 14.9 H 07/20/16 07/20/16 07/20/16 18:50 22:01 23:12 Heparin Anti-Xa Level 0.13 L Potassium Chloride Creatinine Glucose POC Glucose 138 H 179 H TSH Free T4 Thyroxine (T4) 07/21/16 07/21/16 07/21/16 02:08 04:21 05:41 Heparin Anti-Xa Level Potassium 3.5 L Chloride 95.6 L Creatinine 0.4 L Glucose 124 H POC Glucose 135 H 138 H TSH Free T4 Thyroxine (T4) 07/21/16 07:41 Heparin Anti-Xa Level 0.26 L Potassium Chloride Creatinine Glucose POC Glucose TSH Free T4 Thyroxine (T4)
--- NOTE | 2016-07-21 13:42 | Ultrasound Report ---
ULTRASOUND THYROID SCAN History: Hyperthyroidism. Findings: The thyroid gland is enlarged and heterogeneous in echotexture. The right lobe measures 6.2 x 3.2 x 2.9 cm. The left lobe measures 6.2 x 3.2 x 2.6 cm. A solitary hypoechoic nodule in the superior right thyroid lobe measures 1.7 x 0.7 x 1.3 cm. Impression: Mild thyromegaly. Solitary 1.7 cm hypoechoic nodule in the superior right thyroid lobe.
--- NOTE | 2016-07-21 15:00 | Progress Note ---
Assessment and Plan Severe hyperthyroidism Chest pain no evidence of PE on CTA Abnormal ECG with lateral ST depression cardiac enzymes are negative Recommendations: Echocardiogram for left ventricle function assessment. Pre-discharge thallium stress test once thyroidism is treated. Subjective Date of service: 07/21/16 Interval history: Patient reports she is feeling better. Objective Vital Signs Temp Pulse Pulse Pulse Resp Resp BP 07/21/16 12:20 82 19 111/84 07/21/16 12:10 83 17 111/84 07/21/16 12:00 97.7 F 82 89 27 H 111/84 07/21/16 11:50 89 19 111/83 07/21/16 11:40 85 31 H 111/83 07/21/16 11:30 86 22 111/83 07/21/16 11:20 90 18 117/84 07/21/16 11:10 91 H 18 117/84 07/21/16 11:00 95 H 21 117/84 07/21/16 10:50 104 H 12 117/81 07/21/16 10:40 108 H 14 117/81 07/21/16 10:37 28 H 07/21/16 10:35 102 H 105/79 07/21/16 10:30 105 H 25 H 117/81 07/21/16 10:20 107 H 28 H 105/79 07/21/16 10:10 105 H 25 H 105/79 07/21/16 10:00 126 H 26 H 21 119/84 07/21/16 09:50 121 H 29 H 119/84 07/21/16 09:40 114 H 24 119/84 07/21/16 09:30 106 H 26 H 119/84 07/21/16 09:20 101 H 19 124/88 07/21/16 09:10 104 H 28 H 124/88 07/21/16 09:00 102 H 30 H 124/88 07/21/16 08:50 104 H 18 120/75 07/21/16 08:40 102 H 18 120/75 07/21/16 08:34 07/21/16 08:30 95 H 25 H 112/68 07/21/16 08:20 105 H 32 H 112/68 07/21/16 08:10 107 H 19 112/68 07/21/16 08:00 98.4 F 98 H 98 H 18 112/68 07/21/16 07:50 103 H 23 117/80 07/21/16 07:40 101 H 20 129/81 07/21/16 07:30 95 H 17 129/81 07/21/16 07:20 101 H 26 H 129/81 07/21/16 07:10 97 H 20 117/80 07/21/16 07:00 98 H 21 117/80 07/21/16 06:50 99 H 22 130/81 07/21/16 06:40 98 H 22 129/81 07/21/16 06:30 95 H 21 129/81 07/21/16 06:20 100 H 21 130/81 07/21/16 06:10 104 H 22 130/81 07/21/16 06:00 97 H 17 130/81 07/21/16 05:50 105 H 28 H 119/86 07/21/16 05:40 105 H 22 119/86 07/21/16 05:30 101 H 23 119/86 07/21/16 05:20 98 H 24 118/81 07/21/16 05:10 100 H 20 131/90 07/21/16 05:00 102 H 22 131/90 07/21/16 04:50 97 H 21 131/90 07/21/16 04:40 98 H 21 131/90 07/21/16 04:30 98 H 21 131/90 07/21/16 04:20 94 H 20 131/90 07/21/16 04:10 102 H 22 131/90 07/21/16 04:00 106 H 22 131/90 07/21/16 03:50 101 H 23 124/79 07/21/16 03:40 108 H 28 H 124/79 07/21/16 03:30 97 H 15 124/79 07/21/16 03:20 100 H 22 126/78 07/21/16 03:10 98 H 23 126/78 07/21/16 03:00 98 H 21 126/78 07/21/16 02:50 105 H 22 112/74 07/21/16 02:40 104 H 21 112/74 07/21/16 02:30 97 H 20 112/74 07/21/16 02:20 117 H 23 125/71 07/21/16 02:10 24 125/71 07/21/16 02:00 109 H 23 123/88 06/13/17 01:50 107 H 21 123/88 07/21/16 01:43 108 H 102 H 26 H 07/21/16 01:40 105 H 21 123/88 07/21/16 01:30 102 H 22 121/78 07/21/16 01:20 104 H 24 123/88 07/21/16 01:10 109 H 24 123/88 07/21/16 01:00 103 H 21 123/88 07/21/16 00:50 104 H 23 142/88 07/21/16 00:00 98.3 F 104 H 104 H 24 07/20/16 22:40 07/20/16 20:30 99 H 25 H 106/65 07/20/16 20:20 104 H 27 H 118/70 07/20/16 20:11 97.7 F 07/20/16 20:10 103 H 24 118/70 07/20/16 20:00 103 H 107 H 107 H 27 H 118/70 07/20/16 19:50 103 H 22 116/70 07/20/16 19:40 103 H 18 116/70 07/20/16 19:30 107 H 21 116/70 07/20/16 19:20 105 H 21 117/66 07/20/16 19:10 110 H 24 117/66 07/20/16 19:00 106 H 20 117/66 07/20/16 18:50 102 H 25 H 112/63 07/20/16 18:40 108 H 23 112/63 07/20/16 18:30 113 H 22 112/63 07/20/16 18:20 113 H 26 H 117/59 07/20/16 18:10 112 H 26 H 117/59 07/20/16 18:00 109 H 104 H 23 117/59 07/20/16 17:50 109 H 23 109/85 07/20/16 17:40 109 H 24 109/85 07/20/16 17:30 110 H 33 H 109/85 07/20/16 17:20 112 H 30 H 114/61 07/20/16 17:10 114 H 27 H 114/61 07/20/16 17:02 119 H 36 H 129/77 07/20/16 16:48 98.5 F 07/20/16 16:40 117 H 25 H 129/77 06/12/17 16:30 111 H 32 H 129/77 07/20/16 16:20 122 H 33 H 132/81 07/20/16 16:10 120 H 34 H 132/81 07/20/16 16:00 116 H 113 H 29 H 132/81 07/20/16 15:50 120 H 30 H 124/74 07/20/16 15:40 117 H 40 H 124/74 07/20/16 15:30 121 H 30 H 124/74 07/20/16 15:20 118 H 28 H 133/72 07/20/16 15:10 117 H 30 H 133/72 07/20/16 15:00 115 H 20 133/72 Pulse Ox 07/21/16 12:20 100 07/21/16 12:10 100 07/21/16 12:00 99 07/21/16 11:50 99 07/21/16 11:40 100 07/21/16 11:30 98 07/21/16 11:20 100 07/21/16 11:10 100 07/21/16 11:00 99 07/21/16 10:50 100 07/21/16 10:40 100 07/21/16 10:37 07/21/16 10:35 07/21/16 10:30 98 07/21/16 10:20 100 07/21/16 10:10 100 07/21/16 10:00 99 07/21/16 09:50 100 07/21/16 09:40 99 07/21/16 09:30 99 07/21/16 09:20 100 07/21/16 09:10 99 07/21/16 09:00 99 07/21/16 08:50 98 07/21/16 08:40 98 07/21/16 08:34 99 07/21/16 08:30 100 07/21/16 08:20 98 07/21/16 08:10 97 07/21/16 08:00 100 07/21/16 07:50 99 07/21/16 07:40 97 07/21/16 07:30 98 07/21/16 07:20 100 07/21/16 07:10 98 07/21/16 07:00 97 07/21/16 06:50 98 07/21/16 06:40 98 07/21/16 06:30 99 07/21/16 06:20 98 06 06:10 100 07/21/16 06:00 100 07/21/16 05:50 98 07/21/16 05:40 98 07/21/16 05:30 07/21/16 05:20 99 07/21/16 05:10 100 07/21/16 05:00 97 07/21/16 04:50 98 07/21/16 04:40 98 07/21/16 04:30 98 07/21/16 04:20 99 07/21/16 04:10 99 07/21/16 04:00 98 07/21/16 03:50 100 07/21/16 03:40 100 07/21/16 03:30 07/21/16 03:20 99 07/21/16 03:10 99 07/21/16 03:00 98 07/21/16 02:50 98 07/21/16 02:40 99 07/21/16 02:30 99 07/21/16 02:20 97 07/21/16 02:10 99 07/21/16 02:00 99 07/21/16 01:50 98 07/21/16 01:43 99 07/21/16 01:40 98 07/21/16 01:30 98 07/21/16 01:20 98 07/21/16 01:10 99 07/21/16 01:00 99 07/21/16 00:50 98 07/21/16 00:00 98 07/20/16 22:40 98 07/20/16 20:30 100 07/20/16 20:20 99 07/20/16 20:11 07/20/16 20:10 100 07/20/16 20:00 99 07/20/16 19:50 99 07/20/16 19:40 100 07/20/16 19:30 97 07/20/16 19:20 97 07/20/16 19:10 98 07/20/16 19:00 96 07/20/16 18:50 98 07/20/16 18:40 98 07/20/16 18:30 96 17 18:20 96 07/20/16 18:10 97 07/20/16 18:00 97 07/20/16 17:50 99 07/20/16 17:40 98 07/20/16 17:30 100 07/20/16 17:20 97 07/20/16 17:10 100 07/20/16 17:02 98 07/20/16 16:48 07/20/16 16:40 100 07/20/16 16:30 07/20/16 16:20 97 07/20/16 16:10 99 07/20/16 16:00 99 07/20/16 15:50 100 07/20/16 15:40 97 07/20/16 15:30 98 07/20/16 15:20 98 07/20/16 15:10 98 07/20/16 15:00 98 - Physical Examination General: No Apparent Distress HEENT: Positive: PERRL Neck: Positive: neck supple Cardiac: Positive: Reg Rate and Rhythm Lungs: Positive: Decreased Breath Sounds Neuro: Positive: Grossly Intact Extremities: Absent: edema - Labs and Meds Coagulation 07/21/16 Range/Units 04:21 PT 14.0 (12.2-14.9) Sec. INR 1.09 (0.87-1.13) CBC 07/21/16 Range/Units 04:21 Hgb 13.1 (10.1-14.3) gm/dl Hct 40.5 (30.3-42.9) % Plt Count 230 (140-440) K/mm3 Comprehensive Metabolic Panel 07/21/16 Range/Units 04:21 Sodium 137 (137-145) mmol/L Potassium 3.5 L (3.6-5.0) mmol/L Chloride 95.6 L (98-107) mmol/L Carbon Dioxide 25 (22-30) mmol/L BUN 11 (7-17) mg/dL Creatinine 0.4 L (0.7-1.2) mg/dL Glucose 124 H (65-100) mg/dL Calcium 9.3 (8.4-10.2) mg/dL
[2016-07-21] MEDS ORDERED: K-DUR PO ONE (16:54)
--- NOTE | 2016-07-21 16:55 | Progress Note ---
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 * DVT/GI prophy. Plan of care discussed with the patient in detail,. History Interval history: Patient seen and examined today and in no acute distress reports improvement. Denies any chest pain, nausea, vomiting, diarrhea. No other adverse event reported to me. Hospitalist Physical - Physical exam Narrative exam: VITAL SIGNS: Reviewed. GENERAL: The patient appeared well nourished and normally developed. Vital signs as documented. HEAD: No signs of head trauma. EYES: Pupils are equal. Proptosis, Extraocular motions intact. EARS: Hearing grossly intact. MOUTH: Oropharynx is normal. NECK: No adenopathy, no JVD. CHEST: Chest with clear breath sounds bilaterally. No wheezes, rales, or rhonchi. CARDIAC: Regular rate and rhythm. S1 and S2, without murmurs, gallops, or rubs. VASCULAR: No Edema. Peripheral pulses normal and equal in all extremities. ABDOMEN: Soft, without detectable tenderness. No sign of distention. No rebound or guarding, and no masses palpated. Bowel Sounds normal. MUSCULOSKELETAL: Good range of motion of all major joints. Extremities without clubbing, cyanosis or edema. NEUROLOGIC EXAM: Alert and oriented x 3. No focal sensory or strength deficits. Speech normal. Follows commands. PSYCHIATRIC: Mood normal. SKIN: No rash or lesions. - Constitutional Vitals: Temp Pulse Resp BP Pulse Ox 97.7 F 87 19 100/78 100 07/21/16 12:00 07/21/16 16:00 07/21/16 16:00 07/21/16 16:00 07/21/16 16:00 General appearance: Present: no acute distress Results - Labs CBC & Chem 7: 07/21/16 04:21 07/21/16 04:21 Labs: Laboratory Last Values WBC 7.7 K/mm3 (4.5-11.0) 07/19/16 06:45 RBC 4.32 M/mm3 (3.65-5.03) 07/19/16 06:45 Hgb 13.1 gm/dl (10.1-14.3) 07/21/16 04:21 Hct 40.5 % (30.3-42.9) 07/21/16 04:21 MCV 86 fl (79-97) 07/19/16 06:45 MCH 28 pg (28-32) 07/19/16 06:45 MCHC 32 % (30-34) 07/19/16 06:45 RDW 15.4 % (13.2-15.2) H 07/19/16 06:45 Plt Count 230 K/mm3 (140-440) 07/21/16 04:21 Lymph % (Auto) 37.8 % (13.4-35.0) H 07/19/16 06:45 Dickenson % (Auto) 8.7 % (0.0-7.3) H 07/19/16 06:45 Eos % (Auto) 0.7 % (0.0-4.3) 07/19/16 06:45 Baso % (Auto) 0.6 % (0.0-1.8) 07/19/16 06:45 Lymph # 2.9 K/mm3 (1.2-5.4) 07/19/16 06:45 Dickenson # 0.7 K/mm3 (0.0-0.8) 07/19/16 06:45 Eos # 0.1 K/mm3 (0.0-0.4) 07/19/16 06:45 Baso # 0.0 K/mm3 (0.0-0.1) 07/19/16 06:45 Seg Neutrophils % 52.2 % (40.0-70.0) 07/19/16 06:45 Seg Neutrophils # 4.0 K/mm3 (1.8-7.7) 07/19/16 06:45 PT 14.0 Sec. (12.2-14.9) 07/21/16 04:21 INR 1.09 (0.87-1.13) 07/21/16 04:21 APTT 35.1 Sec. (24.2-36.6) 07/19/16 12:29 D-Dimer 1205.69 ng/mlDDU (0-234) H 07/19/16 06:45 Heparin Anti-Xa Level 0.43 U.I./ml (0.3-0.7) 07/21/16 15:22 VBG pH 7.339 (7.320-7.420) 07/19/16 06:45 Sodium 137 mmol/L (137-145) 07/21/16 04:21 Potassium 3.5 mmol/L (3.6-5.0) L 07/21/16 04:21 Chloride 95.6 mmol/L (98-107) L 07/21/16 04:21 Carbon Dioxide 25 mmol/L (22-30) 07/21/16 04:21 Anion Gap 20 mmol/L 07/21/16 04:21 BUN 11 mg/dL (7-17) 07/21/16 04:21 Creatinine 0.4 mg/dL (0.7-1.2) L 07/21/16 04:21 Estimated GFR > 60 ml/min 07/21/16 04:21 BUN/Creatinine Ratio 27.50 % 07/21/16 04:21 Glucose 124 mg/dL (65-100) H 07/21/16 04:21 POC Glucose 156 (70-105) H 07/21/16 12:21 Calcium 9.3 mg/dL (8.4-10.2) 07/21/16 04:21 Magnesium 1.60 mg/dL (1.7-2.3) L 07/19/16 06:45 Total Creatine Kinase 40 units/L (30-135) 07/19/16 20:37 CK-MB (CK-2) 1.5 ng/mL (0.0-4.0) 07/19/16 20:37 CK-MB (CK-2) Rel Index 3.7 (0-4) 07/19/16 20:37 Troponin T < 0.010 ng/mL (0.00-0.029) 07/19/16 20:37 NT-Pro-B Natriuret Pep 5374 pg/mL (0-450) H 07/19/16 11:23 TSH < 0.005 mlU/mL (0.270-4.200) L 07/20/16 13:46 Free T4 6.94 ng/dL (0.76-1.46) H 07/20/16 13:46 Thyroxine (T4) 14.9 ug/dL (4.0-12.0) H 07/20/16 13:46 HCG, Qual Negative (Negative) 07/19/16 06:45 Sjogren's Antibody <1.0 AI (<1.0) 07/19/16 13:16 Double Strand DNA Ab <1 IU/mL (<=4) 07/19/16 13:16 Blood Type A POSITIVE 07/21/16 04:21 Antibody Screen TNR 07/21/16 04:21 CARLOS Antibody Screen Negative 07/21/16 04:21
[2016-07-22] MEDS: TAPAZOLE PO SCH ×3 (06:43→21:45)
--- NOTE | 2016-07-22 08:40 | Progress Note ---
Assessment and Plan Assessment and plan: * Chest pain -Atypical-stress test planned for tomorrow * Severe hyperthyroidism with possible thyroid storm- Started on Methimezole. 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 patient needs close outpatient follow up, will need an NM thyroid uptake scan, unfortunately she recently had a contrasted CTA and needs to wait 30 days, also will need to be off thyroid medications per NM. This will all need to be determined outpatient. Will recommend a follow up with Surgery, Dr Villatoro AND ALso with Activity Therapy Specialist of choice. * Probably Diastolic systolic heart failure- Continue to monitor, AWAIT ECHO * DVT/GI prophy. * Plan of care discussed with the patient in detail,. History Interval history: Patient seen and examined today and in no acute distress reports improvement. No other adverse event reported to me. Hospitalist Physical - Physical exam Narrative exam: VITAL SIGNS: Reviewed. GENERAL: The patient appeared well nourished and normally developed. Vital signs as documented. HEAD: No signs of head trauma. EYES: Pupils are equal. Proptosis, Extraocular motions intact. EARS: Hearing grossly intact. MOUTH: Oropharynx is normal. NECK: No adenopathy, no JVD. CHEST: Chest with clear breath sounds bilaterally. No wheezes, rales, or rhonchi. CARDIAC: Regular rate and rhythm. S1 and S2, without murmurs, gallops, or rubs. VASCULAR: No Edema. Peripheral pulses normal and equal in all extremities. ABDOMEN: Soft, without detectable tenderness. No sign of distention. No rebound or guarding, and no masses palpated. Bowel Sounds normal. MUSCULOSKELETAL: Good range of motion of all major joints. Extremities without clubbing, cyanosis or edema. NEUROLOGIC EXAM: Alert and oriented x 3. No focal sensory or strength deficits. Speech normal. Follows commands. PSYCHIATRIC: Mood normal. SKIN: No rash or lesions. - Constitutional Vitals: Temp Pulse Resp BP Pulse Ox 98.1 F 87 20 92/55 99 07/22/16 05:00 07/22/16 05:00 07/22/16 05:00 07/22/16 05:00 07/22/16 05:00 General appearance: Present: no acute distress Results - Labs CBC & Chem 7: 07/21/16 04:21 07/21/16 04:21 Labs: Laboratory Last Values WBC 7.7 K/mm3 (4.5-11.0) 07/19/16 06:45 RBC 4.32 M/mm3 (3.65-5.03) 07/19/16 06:45 Hgb 13.1 gm/dl (10.1-14.3) 07/21/16 04:21 Hct 40.5 % (30.3-42.9) 07/21/16 04:21 MCV 86 fl (79-97) 07/19/16 06:45 MCH 28 pg (28-32) 07/19/16 06:45 MCHC 32 % (30-34) 07/19/16 06:45 RDW 15.4 % (13.2-15.2) H 07/19/16 06:45 Plt Count 230 K/mm3 (140-440) 07/21/16 04:21 Lymph % (Auto) 37.8 % (13.4-35.0) H 07/19/16 06:45 Charlton % (Auto) 8.7 % (0.0-7.3) H 07/19/16 06:45 Eos % (Auto) 0.7 % (0.0-4.3) 07/19/16 06:45 Baso % (Auto) 0.6 % (0.0-1.8) 07/19/16 06:45 Lymph # 2.9 K/mm3 (1.2-5.4) 07/19/16 06:45 Charlton # 0.7 K/mm3 (0.0-0.8) 07/19/16 06:45 Eos # 0.1 K/mm3 (0.0-0.4) 07/19/16 06:45 Baso # 0.0 K/mm3 (0.0-0.1) 07/19/16 06:45 Seg Neutrophils % 52.2 % (40.0-70.0) 07/19/16 06:45 Seg Neutrophils # 4.0 K/mm3 (1.8-7.7) 07/19/16 06:45 PT 14.0 Sec. (12.2-14.9) 07/21/16 04:21 INR 1.09 (0.87-1.13) 07/21/16 04:21 APTT 35.1 Sec. (24.2-36.6) 07/19/16 12:29 D-Dimer 1205.69 ng/mlDDU (0-234) H 07/19/16 06:45 Heparin Anti-Xa Level 0.43 U.I./ml (0.3-0.7) 07/21/16 15:22 VBG pH 7.339 (7.320-7.420) 07/19/16 06:45 Sodium 137 mmol/L (137-145) 07/21/16 04:21 Potassium 3.5 mmol/L (3.6-5.0) L 07/21/16 04:21 Chloride 95.6 mmol/L (98-107) L 07/21/16 04:21 Carbon Dioxide 25 mmol/L (22-30) 07/21/16 04:21 Anion Gap 20 mmol/L 07/21/16 04:21 BUN 11 mg/dL (7-17) 07/21/16 04:21 Creatinine 0.4 mg/dL (0.7-1.2) L 07/21/16 04:21 Estimated GFR > 60 ml/min 07/21/16 04:21 BUN/Creatinine Ratio 27.50 % 07/21/16 04:21 Glucose 124 mg/dL (65-100) H 07/21/16 04:21 POC Glucose 125 (70-105) H 07/21/16 21:09 Calcium 9.3 mg/dL (8.4-10.2) 07/21/16 04:21 Magnesium 1.60 mg/dL (1.7-2.3) L 07/19/16 06:45 Total Creatine Kinase 40 units/L (30-135) 07/19/16 20:37 CK-MB (CK-2) 1.5 ng/mL (0.0-4.0) 07/19/16 20:37 CK-MB (CK-2) Rel Index 3.7 (0-4) 07/19/16 20:37 Troponin T < 0.010 ng/mL (0.00-0.029) 07/19/16 20:37 NT-Pro-B Natriuret Pep 5374 pg/mL (0-450) H 07/19/16 11:23 TSH < 0.005 mlU/mL (0.270-4.200) L 07/20/16 13:46 Free T4 6.94 ng/dL (0.76-1.46) H 07/20/16 13:46 Thyroxine (T4) 14.9 ug/dL (4.0-12.0) H 07/20/16 13:46 Free T3 Index 18.4 pg/mL (2.3-4.2) H 07/20/16 13:46 HCG, Qual Negative (Negative) 07/19/16 06:45 Sjogren's Antibody <1.0 AI (<1.0) 07/19/16 13:16 Double Strand DNA Ab <1 IU/mL (<=4) 07/19/16 13:16 Blood Type A POSITIVE 07/21/16 04:21 Antibody Screen TNR 07/21/16 04:21 CARLOS Antibody Screen Negative 07/21/16 04:21
[2016-07-22] MEDS ORDERED: LOVENOX SUB-Q SCH (10:00)
--- NOTE | 2016-07-22 10:14 | Progress Note ---
Assessment and Plan Severe hyperthyroidism -new diagnosis Chest pain no evidence of PE on CTA Abnormal ECG with lateral ST depression likely consequences of thyroidism cardiac enzymes are negative Recommendations: Echocardiogram results pending for left ventricle function assessment. We will get a thallium stress test before discharge. Subjective Date of service: 07/22/16 Interval history: Patient has no complaints; reports she is feeling better. Objective Vital Signs Temp Pulse Pulse Pulse Pulse Resp BP 07/22/16 08:39 98.1 F 71 18 07/22/16 08:26 07/22/16 05:00 98.1 F 87 20 07/22/16 00:39 98 F 87 20 07/21/16 22:03 82 108/74 07/21/16 20:00 98.1 F 82 20 07/21/16 16:00 98.7 F 87 19 100/78 07/21/16 15:30 81 19 94/25 07/21/16 15:00 84 29 H 117/82 07/21/16 14:30 84 22 113/85 07/21/16 14:00 84 20 112/83 07/21/16 13:30 83 22 112/81 07/21/16 13:00 81 18 115/73 07/21/16 12:30 81 21 116/82 07/21/16 12:20 82 19 111/84 07/21/16 12:10 83 17 111/84 07/21/16 12:00 97.7 F 82 89 27 H 111/84 07/21/16 11:50 89 19 111/83 07/21/16 11:40 85 31 H 111/83 07/21/16 11:30 86 22 111/83 07/21/16 11:20 90 18 117/84 07/21/16 11:10 91 H 18 117/84 07/21/16 11:00 95 H 21 117/84 07/21/16 10:50 104 H 12 117/81 07/21/16 10:40 108 H 14 117/81 07/21/16 10:37 28 H 07/21/16 10:35 102 H 105/79 07/21/16 10:30 105 H 25 H 117/81 07/21/16 10:20 107 H 28 H 105/79 BP Pulse Ox 07/22/16 08:39 119/81 99 07/22/16 08:26 95 07/22/16 05:00 92/55 99 07/22/16 00:39 108/74 96 07/21/16 22:03 07/21/16 20:00 108/74 100 07/21/16 16:00 100 07/21/16 15:30 100 07/21/16 15:00 100 07/21/16 14:30 07/21/16 14:00 98 07/21/16 13:30 98 07/21/16 13:00 99 07/21/16 12:30 100 07/21/16 12:20 100 07/21/16 12:10 100 07/21/16 12:00 99 07/21/16 11:50 99 07/21/16 11:40 100 07/21/16 11:30 98 07/21/16 11:20 100 07/21/16 11:10 100 07/21/16 11:00 99 07/21/16 10:50 100 07/21/16 10:40 100 07/21/16 10:37 07/21/16 10:35 07/21/16 10:30 98 07/21/16 10:20 100 - Physical Examination General: No Apparent Distress HEENT: Positive: PERRL Neck: Positive: neck supple Cardiac: Positive: Reg Rate and Rhythm Lungs: Positive: Decreased Breath Sounds Neuro: Positive: Grossly Intact Abdomen: Positive: Soft Skin: Positive: Clear Extremities: Absent: edema
[2016-07-22] MEDS: LASIX IV SCH ×2 (11:01→21:47)
[2016-07-22] MEDS: MAG-OX PO SCH (11:02)
[2016-07-22] MEDS: LOPRESSOR PO SCH ×2 (11:02→21:45)
[2016-07-22] MEDS: ECOTRIN PO SCH (11:02)
[2016-07-22] MEDS: ZESTRIL PO SCH (13:50)
[2016-07-22] MEDS: LOVENOX SUB-Q SCH (13:51)
[2016-07-22] MEDS: TYLENOL PO PRN (19:41)
[2016-07-22] MEDS: AMBIEN PO PRN (21:46)
[2016-07-23 05:24] LABS: Hematocrit 44.6 % (30.3-42.9); Hemoglobin 14.2 gm/dl (10.1-14.3)
[2016-07-23] MEDS: TAPAZOLE PO SCH ×3 (06:15→22:00)
[2016-07-23] MEDS ORDERED: LEXISCAN IV ONE (11:53)
--- NOTE | 2016-07-23 13:40 | Progress Note ---
Assessment and Plan Assessment and plan: Chest pain -Atypical-stress test planned today, we'll discharge negative Severe hyperthyroidism with possible thyroid storm- Started on Methimezole. 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 patient needs close outpatient follow up, will need an [place] thyroid uptake scan, unfortunately she recently had a contrasted CTA and needs to wait 30 days, also will need to be off thyroid medications per [place]. This will all need to be determined outpatient. Will recommend a follow up with Surgery, Dr Villatoro AND ALso with Waist Pleater of choice. Probably Diastolic systolic heart failure- Continue to monitor, AWAIT ECHO DVT/GI prophy. Plan of care discussed with the patient in detail,. EF showing dilated LV with EF 15-20 percent NYHA class III CHF per Cardiology History Interval history: Patient seen and examined. Follow up on chest pain. Overnight uneventful. No cp , sob, n/v or severe headaches. Imaging, old records, testing, labs, nursing notes reviewed. Hospitalist Physical - Physical exam Narrative exam: GEN: WDWN, NAD, AWAKE, ALERT, ORIENTATED x 3 HEENT: NCAT, PERRL, EOMI, OP CLEAR NECK: SUPPLE, NO THYROMEGALY, NO JVD, NO LAD CVS: RRR, NORMAL S1S2 LUNGS/CHEST: CTA B, NORMAL CHEST EXPANSION B, GOOD AIR ENTRY B, mild chest wall tenderness bilaterally ABD: SOFT, NTND, GBS, NO REBOUND OR GUARDING EXT/SKIN: NO SIGNIFICANT EDEMA OR RASH MSK: FROM X 4 EXTREMITIES NEURO: CN 2-12 GROSSLY INTACT, NO FOCAL DEFICITS PSY: CALM - Constitutional Vitals: Temp Pulse Resp BP Pulse Ox 98.5 F 97 H 18 115/78 98 07/23/16 09:59 07/23/16 11:54 07/23/16 09:59 07/23/16 11:54 07/23/16 09:59 General appearance: Present: no acute distress Results - Labs CBC & Chem 7: 07/23/16 04:51 07/21/16 04:21 Labs: Laboratory Last Values WBC 7.7 K/mm3 (4.5-11.0) 07/19/16 06:45 RBC 4.32 M/mm3 (3.65-5.03) 07/19/16 06:45 Hgb 14.2 gm/dl (10.1-14.3) 07/23/16 04:51 Hct 44.6 % (30.3-42.9) H 07/23/16 04:51 MCV 86 fl (79-97) 07/19/16 06:45 MCH 28 pg (28-32) 07/19/16 06:45 MCHC 32 % (30-34) 07/19/16 06:45 RDW 15.4 % (13.2-15.2) H 07/19/16 06:45 Plt Count 293 K/mm3 (140-440) 07/23/16 04:51 Lymph % (Auto) 37.8 % (13.4-35.0) H 07/19/16 06:45 [place] % (Auto) 8.7 % (0.0-7.3) H 07/19/16 06:45 Eos % (Auto) 0.7 % (0.0-4.3) 07/19/16 06:45 Baso % (Auto) 0.6 % (0.0-1.8) 07/19/16 06:45 Lymph # 2.9 K/mm3 (1.2-5.4) 07/19/16 06:45 [place] # 0.7 K/mm3 (0.0-0.8) 07/19/16 06:45 Eos # 0.1 K/mm3 (0.0-0.4) 07/19/16 06:45 Baso # 0.0 K/mm3 (0.0-0.1) 07/19/16 06:45 Seg Neutrophils % 52.2 % (40.0-70.0) 07/19/16 06:45 Seg Neutrophils # 4.0 K/mm3 (1.8-7.7) 07/19/16 06:45 PT 14.0 Sec. (12.2-14.9) 07/21/16 04:21 INR 1.09 (0.87-1.13) 07/21/16 04:21 APTT 35.1 Sec. (24.2-36.6) 07/19/16 12:29 D-Dimer 1205.69 ng/mlDDU (0-234) H 07/19/16 06:45 Heparin Anti-Xa Level 0.43 U.I./ml (0.3-0.7) 07/21/16 15:22 VBG pH 7.339 (7.320-7.420) 07/19/16 06:45 Sodium 137 mmol/L (137-145) 07/21/16 04:21 Potassium 3.5 mmol/L (3.6-5.0) L 07/21/16 04:21 Chloride 95.6 mmol/L (98-107) L 07/21/16 04:21 Carbon Dioxide 25 mmol/L (22-30) 07/21/16 04:21 Anion Gap 20 mmol/L 07/21/16 04:21 BUN 11 mg/dL (7-17) 07/21/16 04:21 Creatinine 0.4 mg/dL (0.7-1.2) L 07/21/16 04:21 Estimated GFR > 60 ml/min 07/21/16 04:21 BUN/Creatinine Ratio 27.50 % 07/21/16 04:21 Glucose 124 mg/dL (65-100) H 07/21/16 04:21 POC Glucose 126 (70-105) H 07/22/16 21:11 Calcium 9.3 mg/dL (8.4-10.2) 07/21/16 04:21 Magnesium 1.60 mg/dL (1.7-2.3) L 07/19/16 06:45 Total Creatine Kinase 40 units/L (30-135) 07/19/16 20:37 CK-MB (CK-2) 1.5 ng/mL (0.0-4.0) 07/19/16 20:37 CK-MB (CK-2) Rel Index 3.7 (0-4) 07/19/16 20:37 Troponin T < 0.010 ng/mL (0.00-0.029) 07/19/16 20:37 NT-Pro-B Natriuret Pep 5374 pg/mL (0-450) H 07/19/16 11:23 TSH < 0.005 mlU/mL (0.270-4.200) L 07/20/16 13:46 Free T4 6.94 ng/dL (0.76-1.46) H 07/20/16 13:46 Thyroxine (T4) 14.9 ug/dL (4.0-12.0) H 07/20/16 13:46 Free T3 Index 18.4 pg/mL (2.3-4.2) H 07/20/16 13:46 HCG, Qual Negative (Negative) 07/19/16 06:45 Sjogren's Antibody <1.0 AI (<1.0) 07/19/16 13:16 Double Strand DNA Ab <1 IU/mL (<=4) 07/19/16 13:16 Blood Type A POSITIVE 07/21/16 04:21 Antibody Screen TNR 07/21/16 04:21 CARLOS Antibody Screen Negative 07/21/16 04:21
--- NOTE | 2016-07-23 13:44 | Discharge Summary ---
Providers - Providers Date of Admission: 07/19/16 16:10 Date of discharge: 07/24/16 Attending physician: MU LOMAS Primary care physician: FORENSIC IDENTIFICATION SPECIALIST Hospitalization Condition: Stable Hospital course: Patient is a 46-year-old woman with history of tobacco dependency who presented with chest pain was found have severe hypothyroidism. -Chest pain -Atypical-stress test planned today, we'll discharge if negative -Severe hyperthyroidism with possible thyroid storm- Started on Methimezole. 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 patient needs close outpatient follow up, will need an NM thyroid uptake scan, unfortunately she recently had a contrasted CTA and needs to wait 30 days, also will need to be off thyroid medications per NM. This will all need to be determined outpatient. Will recommend a follow up with Surgery, Dr Villatoro AND ALso with Stitching Machine Operator of choice. -Acute Diastolic and systolic heart failure- Continue to monitor, EF showing dilated LV with EF 15-20 percent, NYHA class III CHF per Cardiology positive stress test and went for Cardiac cath Disposition: DC-01 TO HOME OR SELFCARE Time spent for discharge: 32 minutes Core Measure Documentation - Palliative Care Palliative Care/ Comfort Measures: Not Applicable - Core Measures Any of the following diagnoses?: heart failure - VTE Discharge Requirements Deep Vein Thrombosis/Pulmonary Embolism Present on Admission: No Has pt received <5 days of overlap therapy or INR<2.0: No Anticoagulant overlap therapy prescribed at discharge: No Contraindication No Overlap Therapy order at DC: Not Indicated - Heart Failure Discharge Requirements SANTA/ARB for LVSD if EF <40%: Yes Beta kim at discharge: Yes Exam - Physical Exam Narrative exam: GEN: WDWN, NAD, AWAKE, ALERT, ORIENTATED x 3 HEENT: NCAT, PERRL, EOMI, OP CLEAR NECK: SUPPLE, NO JVD, NO LAD, she has a goiter and exophthamos CVS: RRR, NORMAL S1S2 LUNGS/CHEST: CTA B, NORMAL CHEST EXPANSION B, GOOD AIR ENTRY B, mild chest wall tenderness bilaterally ABD: SOFT, NTND, GBS, NO REBOUND OR GUARDING EXT/SKIN: NO SIGNIFICANT EDEMA OR RASH MSK: FROM X 4 EXTREMITIES NEURO: CN 2-12 GROSSLY INTACT, NO FOCAL DEFICITS PSY: CALM - Constitutional Vitals: Temp Pulse Resp BP Pulse Ox 98.5 F 97 H 18 115/78 98 07/23/16 09:59 07/23/16 11:54 07/23/16 09:59 07/23/16 11:54 07/23/16 09:59 Plan Activity: other (no strenous activites until cleared by credit cashier) Diet: low salt Special Instructions: record daily BP diary Additional Instructions: Make an appointment with. Dr. Seth Raymundo. Endocrinology, diabetes & metabolism. [address] [place] [address] [address]. [phone] Follow up with: JASON SAUCEDO MD [Primary Care Provider] - 3-5 Days DANIAL WOOD MD [Staff Physician] - 7 Days Prescriptions: Zolpidem [Ambien] 10 mg PO QHS PRN #10 tablet PRN Reason: Insomnia Aspirin 81 mg PO DAILY #30 tab Furosemide [Lasix TAB] 40 mg PO QDAY #30 tablet Lisinopril [Zestril TAB] 2.5 mg PO QDAY #30 tablet Methimazole [Tapazole] 5 mg PO Q8HR #90 tablet Metoprolol [Lopressor TAB] 12.5 mg PO BID #30 tablet
--- NOTE | 2016-07-23 14:24 | Progress Note ---
Assessment and Plan - Patient Problems (1) Dilated cardiomyopathy Current Visit: Yes Status: Acute Plan to address problem: Patient admitted with symptoms of thyroidism and heart failure. Echocardiogram demonstrates a dilated cardiomyopathy. Thallium stress test today shows a small reversible apical defect. We'll recommend cardiac catheterization to assess for coronary artery disease. (2) Hyperthyroidism Current Visit: Yes Status: Acute Plan to address problem: Hypothyroidism is under management per the primary medical team. Subjective Date of service: 07/23/16 Interval history: Patient had a Persantine thallium stress test, which showed a dilated cardiomyopathy with a partially transient apical defect, suggestive of mild ischemia, but breast attenuation artifact cannot be entirely excluded. Objective Vital Signs Temp Pulse Pulse Pulse Resp BP BP 07/23/16 11:54 97 H 115/78 07/23/16 11:53 106 H 120/77 07/23/16 11:52 103 H 123/84 07/23/16 11:51 100 H 113/82 07/23/16 11:50 106 H 143/89 07/23/16 11:17 84 118/75 07/23/16 10:00 86 07/23/16 09:59 98.5 F 98 H 18 107/78 07/23/16 04:00 98.3 F 85 18 110/59 07/23/16 00:00 98.3 F 83 18 108/70 07/22/16 22:00 82 07/22/16 21:45 80 115/83 07/22/16 20:00 98.1 F 81 18 115/83 07/22/16 17:57 97.8 F 83 18 101/68 Pulse Ox 07/23/16 11:54 07/23/16 11:53 07/23/16 11:52 07/23/16 11:51 07/23/16 11:50 07/23/16 11:17 07/23/16 10:00 07/23/16 09:59 98 07/23/16 04:00 98 07/23/16 00:00 99 07/22/16 22:00 07/22/16 21:45 07/22/16 20:00 99 07/22/16 17:57 100 - Physical Examination General: No Apparent Distress HEENT: Positive: PERRL Neck: Positive: neck supple Cardiac: Positive: Reg Rate and Rhythm Lungs: Positive: Decreased Breath Sounds Neuro: Positive: Grossly Intact Abdomen: Positive: Soft Skin: Positive: Clear Extremities: Absent: edema - Labs and Meds CBC 07/23/16 Range/Units 04:51 Hgb 14.2 (10.1-14.3) gm/dl Hct 44.6 H (30.3-42.9) % Plt Count 293 (140-440) K/mm3
[2016-07-23] MEDS ORDERED: K-DUR PO ONE (15:00)
[2016-07-23] MEDS: LOVENOX SUB-Q SCH (15:07)
[2016-07-23] MEDS: ECOTRIN PO SCH (15:07)
[2016-07-23] MEDS: MAG-OX PO SCH (15:07)
[2016-07-23] MEDS: LASIX IV SCH (15:20)
[2016-07-23] MEDS: ZESTRIL PO SCH (15:21)
[2016-07-23] MEDS: LOPRESSOR PO SCH (15:21)
[2016-07-23] MEDS: INDERAL LA PO SCH (18:48)
[2016-07-23] MEDS: AMBIEN PO PRN (22:00)
--- NOTE | 2016-07-24 00:55 | Treadmill Report ---
THALLIUM STRESS TEST LEFT VENTRICLE: Left ventricle is severely dilated. There is a small to moderate size, partially reversible apical defect. Mild ischemia is demonstrated on the resting study. Gated analysis demonstrates normal left ventricular systolic function, ejection fraction of 27%. CONCLUSION: Evidence of severe dilated cardiomyopathy, severe left ventricular systolic dysfunction. Perfusion study demonstrates a partially reversible apical defect indicative of mild ischemia in this territory. Clinical correlation is recommended. [facility]# [id number] [place]/NTS
[2016-07-24] MEDS: TAPAZOLE PO SCH ×3 (05:52→22:10)
[2016-07-24] MEDS ORDERED: NACL 0.9% 500 ML 500 ML IV SCH (06:00)
[2016-07-24] MEDS ORDERED: ECOTRIN PO SCH (06:00)
[2016-07-24] MEDS ORDERED: LASIX IV SCH (06:00)
[2016-07-24] MEDS ORDERED: ECOTRIN PO ONE (06:00)
[2016-07-24 06:02] LABS: INR 1.04 (0.87-1.13)
[2016-07-24 06:12] LABS: Anion Gap 18 mmol/L; Blood Urea Nitrogen 21 mg/dL (7-17); Calcium 10.1 mg/dL (8.4-10.2); Carbon Dioxide 25 mmol/L (22-30); Chloride 96.9 mmol/L (98-107); Glucose 109 mg/dL (65-100); Potassium 4.9 mmol/L (3.6-5.0); Sodium 135 mmol/L (137-145)
[2016-07-24] MEDS ORDERED: K-DUR PO SCH (10:00)
[2016-07-24] MEDS ORDERED: HEPARIN/NS 5000 UNIT/500ML(CATH LAB) 1,000 ML IR ONE (10:23)
[2016-07-24] MEDS ORDERED: XYLOCAINE 2% INFILTRATI ONE (10:24)
[2016-07-24] MEDS ORDERED: SUBLIMAZE ONE (10:24)
[2016-07-24] MEDS ORDERED: CALAN ONE (10:24)
[2016-07-24] MEDS ORDERED: VERSED ONE (10:24)
[2016-07-24] MEDS ORDERED: HEPARIN 10,000 UNITS/10 ML ONE (10:24)
[2016-07-24] MEDS ORDERED: NITROGLYCERIN SYRINGE 3 ML ONE (10:25)
[2016-07-24] MEDS: MAG-OX PO SCH (12:30)
[2016-07-24] MEDS: LOVENOX SUB-Q SCH (12:31)
[2016-07-24] MEDS: INDERAL LA PO SCH (12:37)
--- NOTE | 2016-07-24 13:10 | Progress Note ---
Assessment and Plan Severe hyperthyroidism - new diagnosis Chest pain no evidence of PE on CTA Cardiac cath showing a borderline ostial and proximal LAD stenosis that will be recommended for medical therapy MPI showing mild ischemia in the LAD distribution Dilated cardiomyopathy, LVEF 15-20% Abnormal ECG with lateral ST depression likely consequences of thyroidism cardiac enzymes are negative Recommendations: Continue therapy for her underlying hyperthyroidism Start lisinopril 5 mg po daily Change propranolol to toprol XL 100 mg po daily Change lasix to po 40 mg po daily Start aldactone 25 mg po daily Change asa to 81 mg po daily Discontinue KCl Monitor in house for another 24 hours Outpatient follow-up with [facility] Cardiac cath reviewed with Dr Chang Revascularization of the LAD with mini-CABG will be considered down the road once her thyroid function is under control. Outpatient endocrine follow-up Subjective Date of service: 07/24/16 Principal diagnosis: Cardiomyopathy Interval history: Patient underwent a heart cath today showing a borderline lesion in the ostial and proximal LAD. No complications Objective Vital Signs Temp Pulse Pulse Pulse Resp BP BP 07/24/16 12:44 98.0 F 89 18 103/71 07/24/16 12:37 89 123/72 07/24/16 10:00 98 H 07/24/16 09:53 07/24/16 08:33 97.9 F 106 H 20 105/67 07/24/16 05:39 98.3 F 107 H 18 95/60 07/24/16 00:00 98.3 F 89 18 118/78 07/23/16 22:00 98 H 07/23/16 20:01 98.1 F 93 H 18 132/80 07/23/16 19:54 22 07/23/16 18:05 97.9 F 64 18 126/77 Pulse Ox 07/24/16 12:44 99 07/24/16 12:37 07/24/16 10:00 07/24/16 09:53 99 07/24/16 08:33 99 07/24/16 05:39 97 07/24/16 00:00 100 07/23/16 22:00 07/23/16 20:01 97 07/23/16 19:54 07/23/16 18:05 99 - Physical Examination General: No Apparent Distress HEENT: Positive: PERRL Neck: Positive: neck supple Cardiac: Positive: Reg Rate and Rhythm Lungs: Positive: Normal Exam Neuro: Positive: Grossly Intact Abdomen: Positive: Soft Skin: Positive: Clear Extremities: Absent: edema - Labs and Meds Coagulation 07/24/16 Range/Units 05:01 PT 13.5 (12.2-14.9) Sec. INR 1.04 (0.87-1.13) Comprehensive Metabolic Panel 07/24/16 Range/Units 05:01 Sodium 135 L (137-145) mmol/L Potassium 4.9 D (3.6-5.0) mmol/L Chloride 96.9 L (98-107) mmol/L Carbon Dioxide 25 (22-30) mmol/L BUN 21 H (7-17) mg/dL Creatinine 0.5 L (0.7-1.2) mg/dL Glucose 109 H (65-100) mg/dL Calcium 10.1 (8.4-10.2) mg/dL
--- NOTE | 2016-07-24 13:20 | Progress Note ---
Assessment and Plan Assessment and plan: Chest pain -Atypical-stress test planned today, we'll discharge negative Severe hyperthyroidism with possible thyroid storm- Started on Methimezole. 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 patient needs close outpatient follow up, will need an NM thyroid uptake scan, unfortunately she recently had a contrasted CTA and needs to wait 30 days, also will need to be off thyroid medications per NM. This will all need to be determined outpatient. Will recommend a follow up with Surgery, Dr Villatoro AND ALso with Recycling Attendant of choice. Probably Diastolic systolic heart failure- Continue to monitor, AWAIT ECHO DVT/GI prophy. Plan of care discussed with the patient in detail,. EF showing dilated LV with EF 15-20 percent NYHA class III CHF per Cardiology Cath done today, d/w Dr. Babcock, will eventually need cabg, cardiomyopahty not due to coronary lesion, keep overnight because he adjusted medications. History Interval history: Patient seen and examined. Follow up on chest pain. Overnight uneventful. No cp , sob, n/v or severe headaches. Imaging, old records, testing, labs, nursing notes reviewed. Hospitalist Physical - Physical exam Narrative exam: GEN: WDWN, NAD, AWAKE, ALERT, ORIENTATED x 3 HEENT: NCAT, PERRL, EOMI, OP CLEAR NECK: SUPPLE, NO JVD, NO LAD, she has a goiter and exophthamos CVS: RRR, NORMAL S1S2 LUNGS/CHEST: CTA B, NORMAL CHEST EXPANSION B, GOOD AIR ENTRY B, mild chest wall tenderness bilaterally ABD: SOFT, NTND, GBS, NO REBOUND OR GUARDING EXT/SKIN: NO SIGNIFICANT EDEMA OR RASH MSK: FROM X 4 EXTREMITIES NEURO: CN 2-12 GROSSLY INTACT, NO FOCAL DEFICITS PSY: CALM - Constitutional Vitals: Temp Pulse Resp BP Pulse Ox 98.0 F 89 18 103/71 99 07/24/16 12:44 07/24/16 12:44 07/24/16 12:44 07/24/16 12:44 07/24/16 12:44 General appearance: Present: no acute distress Results - Labs CBC & Chem 7: 07/23/16 04:51 07/24/16 05:01 Labs: Laboratory Last Values WBC 7.7 K/mm3 (4.5-11.0) 07/19/16 06:45 RBC 4.32 M/mm3 (3.65-5.03) 07/19/16 06:45 Hgb 14.2 gm/dl (10.1-14.3) 07/23/16 04:51 Hct 44.6 % (30.3-42.9) H 07/23/16 04:51 MCV 86 fl (79-97) 07/19/16 06:45 MCH 28 pg (28-32) 07/19/16 06:45 MCHC 32 % (30-34) 07/19/16 06:45 RDW 15.4 % (13.2-15.2) H 07/19/16 06:45 Plt Count 293 K/mm3 (140-440) 07/23/16 04:51 Lymph % (Auto) 37.8 % (13.4-35.0) H 07/19/16 06:45 [place] % (Auto) 8.7 % (0.0-7.3) H 07/19/16 06:45 Eos % (Auto) 0.7 % (0.0-4.3) 07/19/16 06:45 Baso % (Auto) 0.6 % (0.0-1.8) 07/19/16 06:45 Lymph # 2.9 K/mm3 (1.2-5.4) 07/19/16 06:45 [place] # 0.7 K/mm3 (0.0-0.8) 07/19/16 06:45 Eos # 0.1 K/mm3 (0.0-0.4) 07/19/16 06:45 Baso # 0.0 K/mm3 (0.0-0.1) 07/19/16 06:45 Seg Neutrophils % 52.2 % (40.0-70.0) 07/19/16 06:45 Seg Neutrophils # 4.0 K/mm3 (1.8-7.7) 07/19/16 06:45 PT 13.5 Sec. (12.2-14.9) 07/24/16 05:01 INR 1.04 (0.87-1.13) 07/24/16 05:01 APTT 35.1 Sec. (24.2-36.6) 07/19/16 12:29 D-Dimer 1205.69 ng/mlDDU (0-234) H 07/19/16 06:45 Heparin Anti-Xa Level 0.43 U.I./ml (0.3-0.7) 07/21/16 15:22 VBG pH 7.339 (7.320-7.420) 07/19/16 06:45 Sodium 135 mmol/L (137-145) L 07/24/16 05:01 Potassium 4.9 mmol/L (3.6-5.0) D 07/24/16 05:01 Chloride 96.9 mmol/L (98-107) L 07/24/16 05:01 Carbon Dioxide 25 mmol/L (22-30) 07/24/16 05:01 Anion Gap 18 mmol/L 07/24/16 05:01 BUN 21 mg/dL (7-17) H 07/24/16 05:01 Creatinine 0.5 mg/dL (0.7-1.2) L 07/24/16 05:01 Estimated GFR > 60 ml/min 07/24/16 05:01 BUN/Creatinine Ratio 42.00 % 07/24/16 05:01 Glucose 109 mg/dL (65-100) H 07/24/16 05:01 POC Glucose 176 (70-105) H 07/23/16 16:42 Calcium 10.1 mg/dL (8.4-10.2) 07/24/16 05:01 Magnesium 1.60 mg/dL (1.7-2.3) L 07/19/16 06:45 Total Creatine Kinase 40 units/L (30-135) 07/19/16 20:37 CK-MB (CK-2) 1.5 ng/mL (0.0-4.0) 07/19/16 20:37 CK-MB (CK-2) Rel Index 3.7 (0-4) 07/19/16 20:37 Troponin T < 0.010 ng/mL (0.00-0.029) 07/19/16 20:37 NT-Pro-B Natriuret Pep 5374 pg/mL (0-450) H 07/19/16 11:23 TSH < 0.005 mlU/mL (0.270-4.200) L 07/20/16 13:46 Free T4 6.94 ng/dL (0.76-1.46) H 07/20/16 13:46 Thyroxine (T4) 14.9 ug/dL (4.0-12.0) H 07/20/16 13:46 Free T3 Index 18.4 pg/mL (2.3-4.2) H 07/20/16 13:46 HCG, Qual Negative (Negative) 07/19/16 06:45 [place] Screen Negative (Negative) 07/19/16 13:16 Sjogren's Antibody <1.0 AI (<1.0) 07/19/16 13:16 Double Strand DNA Ab <1 IU/mL (<=4) 07/19/16 13:16 Blood Type A POSITIVE 07/21/16 04:21 Antibody Screen TNR 07/21/16 04:21 CARLOS Antibody Screen Negative 07/21/16 04:21
--- NOTE | 2016-07-24 13:45 | Cardiac Catherization Report ---
INDICATIONS: Cardiomyopathy, abnormal myocardial perfusion scan suggesting ischemia in the LAD distribution and shortness of breath. ORDERING PHYSICIAN: Sanjana Chang MD PROCEDURES PERFORMED: 1. Selective left and right coronary angiography. 2. Left ventriculography. DESCRIPTION OF PROCEDURE: After obtaining written consent, the patient was draped using sterile technique. A 2% lidocaine was injected into the right wrist. A 5-[place] vascular sheath was inserted into the right radial artery. A 5-[place] JL3.5 catheter was used to selectively engage the left coronary artery. A 5-[place] JR4 catheter was used to selectively engage the right coronary artery. A 5-[place] JR4 catheter was used to hand inject the left ventriculogram. No complications occurred during the procedure. Hemostasis was achieved at the end of the procedure using manual pressure. SPECIMEN REMOVED: None. ESTIMATED BLOOD LOSS: Minimal. FINDINGS: HEMODYNAMICS: The aortic pressure was 94/66 with an LV systolic pressure of 21 mmHg. The left ventricular end-diastolic pressure was measured at 5 mmHg. There is no significant gradient noted across the left ventricular outflow tract. CARDIAC STRUCTURES: The left ventricular cavity is dilated. There is evidence of severe global left ventricular hypokinesis with an ejection fraction estimated at 20%. CORONARY ANATOMY: 1. The left main is angiographically normal. 2. The left anterior descending artery has evidence of 60-70% tubular stenosis extending from the ostium to the LAD to the level of the first septal driller portable. 3. The left circumflex artery is angiographically normal. 4. The right coronary artery is angiographically normal. IMPRESSION: 1. Borderline 60-70% stenosis involving the ostial and proximal LAD, otherwise angiographically normal coronary circulation. 2. Severe global left ventricular hypokinesis with an ejection fraction estimated at 20%. RECOMMENDATIONS: Continue current medical therapy for the underlying cardiomyopathy. The images will be reviewed with Dr. Chang in order to come up with the most appropriate plan for this patient. JOB# [id number] CLYDE/KENNY
[2016-07-24] MEDS ORDERED: TOPROL XL PO SCH (14:00)
[2016-07-24] MEDS ORDERED: ZOFRAN IV PRN (14:10)
[2016-07-24] MEDS: AMBIEN PO PRN (22:09)
[2016-07-24] MEDS: ZESTRIL PO SCH (22:10)
[2016-07-24] MEDS: ALDACTONE PO SCH (22:10)
[2016-07-25 06:14] LABS: Hematocrit 45.2 % (30.3-42.9); Hemoglobin 14.5 gm/dl (10.1-14.3)
[2016-07-25] MEDS: TAPAZOLE PO SCH (06:15)
--- NOTE | 2016-07-25 08:22 | Discharge Summary ---
Providers - Providers Date of Admission: 07/19/16 16:10 Date of discharge: 07/25/16 Attending physician: ZAFAR BECK MD Primary care physician: VISUAL JOURNALIST Hospitalization Reason for admission: chest pain Condition: Stable Hospital course: 46 YO Female with Nicotine Dependence, Lupus(suspected) presents to ED for evaluation. Pt states that she has been experiencing pain in her chest for the past 3 days with worsening symptoms over the past 12 hours. Pt states that pain is substernal, 7/10, nonradiating, achy, intermittent in duration, not worsened with exertion, or relieved with rest. Patient acknowledges shortness of breath, orthopnea but denies PND, prolonged immobility/travel, leg swelling, calf pain, individual/family history of DVT/PE, hemoptysis, trauma, productive cough, unintentional weight loss, night sweats, bone pain. During hospitalization the patient was seen by mental health program manager. Initial thought was to seek alternative diagnosis for which a TSH was ordered and showed significantly abnormal and a diagnosis of hypothyroidism was made patient was started on medication. We also did find 1.7CM HYPOECHOIC THYROID NODULE- May require Biopsy to eval for malignancy. patient needs close outpatient follow up, will need an NM thyroid uptake scan, unfortunately she recently had a contrasted CTA and needs to wait 30 days, also will need to be off thyroid medications per NM. This will all need to be determined outpatient. Will recommend a follow up with Surgery, Dr Villatoro AND ALso with Professional Poker Player of choice. This was discussed in detail with the patient. She presented to have a cardiac catheterization which shows a borderline ostial and proximal LAD stenosis that will be recommended for medical therapy MPI showing mild ischemia in the LAD distribution Dilated cardiomyopathy, LVEF 15-20% again medical therapy was recommended. She is to follow with cardiology outpatient. She was started on lisinopril, Toprol, Lasix, Aldactone, aspirin. Again she understands need for close follow-up. This is all secondary to the fact that she may need a CABG down the line and this was discussed with the patient in detail Discharge diagnosis * Severe hyperthyroidism - new diagnosis * Atypical chest pain * ACS * Dilated cardiomyopathy LVEF 15-20% * Acute combined systolic and diastolic congestive heart failure NYHA class III CHF * sinus Tachycardia- * Tobacco abuse * 1.7CM HYPOECHOIC THYROID NODULEil,. Disposition: DC-01 TO HOME OR SELFCARE Time spent for discharge: 35 mins Core Measure Documentation - Palliative Care Palliative Care/ Comfort Measures: Not Applicable - Core Measures Any of the following diagnoses?: heart failure - VTE Discharge Requirements Deep Vein Thrombosis/Pulmonary Embolism Present on Admission: No - Heart Failure Discharge Requirements SANTA/ARB for LVSD if EF <40%: Yes Beta kim at discharge: Yes Exam - Physical Exam Narrative exam: VITAL SIGNS: Reviewed. GENERAL: The patient appeared well nourished and normally developed. Vital signs as documented. HEAD: No signs of head trauma. EYES: Pupils are equal. Proptosis, Extraocular motions intact. EARS: Hearing grossly intact. MOUTH: Oropharynx is normal. NECK: No adenopathy, no JVD. CHEST: Chest with clear breath sounds bilaterally. No wheezes, rales, or rhonchi. CARDIAC: Regular rate and rhythm. S1 and S2, without murmurs, gallops, or rubs. VASCULAR: No Edema. Peripheral pulses normal and equal in all extremities. ABDOMEN: Soft, without detectable tenderness. No sign of distention. No rebound or guarding, and no masses palpated. Bowel Sounds normal. MUSCULOSKELETAL: Good range of motion of all major joints. Extremities without clubbing, cyanosis or edema. NEUROLOGIC EXAM: Alert and oriented x 3. No focal sensory or strength deficits. Speech normal. Follows commands. PSYCHIATRIC: Mood normal. SKIN: No rash or lesions. - Constitutional Vitals: Temp Pulse Resp BP Pulse Ox 98.1 F 88 20 95/61 100 07/25/16 04:00 07/25/16 04:00 07/25/16 04:00 07/25/16 04:00 07/25/16 04:00 Plan Activity: advance as tolerated, fall precautions Diet: low salt Special Instructions: record daily weights, record daily BP diary, smoking cessation Additional Instructions: needs to follow with an Professional Poker Player and also an ENT for thyroid nodule. This is important to r/o malingnancy. Also needs close monitoring of thryoid levels. Follow up with: DANIAL WOOD MD [Staff Physician] - 7 Days PRIMARY MD SHERYL [Primary Care Provider] - 3-5 Days AMBER POTTS MD [Staff Physician] - 7 Days Prescriptions: Zolpidem [Ambien] 10 mg PO QHS PRN #10 tablet PRN Reason: Insomnia Aspirin 81 mg PO DAILY #30 tab Furosemide [Lasix TAB] 40 mg PO QDAY #30 tablet Lisinopril [Zestril TAB] 5 mg PO QDAY #30 tablet Methimazole [Tapazole] 5 mg PO Q8HR #90 tablet Metoprolol Xl [Metoprolol SUCCINATE ER TAB] 100 mg PO QDAY #30 tablet Spironolactone [Aldactone] 25 mg PO QDAY #30 tablet
[2016-07-25 09:27] VITALS: BP 109/72
[2016-07-25] MEDS ORDERED: ECOTRIN PO SCH ×2 (10:00)
[2016-07-25] MEDS ORDERED: LASIX PO SCH (10:00)
[2016-07-25] MEDS: LOVENOX SUB-Q SCH (10:22)
[2016-07-25] MEDS: ALDACTONE PO SCH (10:22)
[2016-07-25] MEDS: MAG-OX PO SCH (10:23)
[2016-07-25] MEDS: ZESTRIL PO SCH (10:24)
== END 2016-07-25 11:15 | disposition home or self-care (01) | DRG 280 ==
LOC: ED 06:29 → CC1 16:10 → 4A 07-21 17:13
PROVIDERS: ADMIT Internal Medicine; ATTEND Internal Medicine
PROC: 4A023N7 Measurement of Cardiac Sampling and Pressure, Left Heart, Percutaneous Approach (ICD-10-PCS; principal; 2016-07-24)
PROC: B2111ZZ Fluoroscopy of Multiple Coronary Arteries using Low Osmolar Contrast (ICD-10-PCS; 2016-07-24)
PROC: B2151ZZ Fluoroscopy of Left Heart using Low Osmolar Contrast (ICD-10-PCS; 2016-07-24)
DX: I11.0 Hypertensive heart disease with heart failure (principal); I21.4 Non-ST elevation (NSTEMI) myocardial infarction; J96.00 Acute respiratory failure, unspecified whether with hypoxia or hypercapnia; I24.9 Acute ischemic heart disease, unspecified; I50.41 Acute combined systolic (congestive) and diastolic (congestive) heart failure; I42.0 Dilated cardiomyopathy; M32.9 Systemic lupus erythematosus, unspecified; R00.0 Tachycardia, unspecified; E05.90 Thyrotoxicosis, unspecified without thyrotoxic crisis or storm; R07.89 Other chest pain; E83.42 Hypomagnesemia; F17.210 Nicotine dependence, cigarettes, uncomplicated; E04.1 Nontoxic single thyroid nodule; Z84.89 Family history of other specified conditions; Z82.49 Family history of ischemic heart disease and other diseases of the circulatory system
CPT/HCPCS: 36415; 71010; 71020; 71275; 76536; 78452; 80048; 82550; 82553; 82805; 82962; 83735; 83880; 84436; 84439; 84443; 84481; 84484; 84703; 85014; 85018; 85025; 85049; 85379; 85520; 85610; 85730; 86038; 86225; 86235; 86800; 86850; 86900; 86901; 93005; 93010; 93017; 93306; 93458; 94760; 96372; 96374; 96375; 96376; A9502; C1894; J1644; J1650; J1940; J2060; J2250; J2270; J2405; J3010; J3475; J7030; J7040; Q9967

== ENCOUNTER 2016-09-23 04:57 | Emergency (ER) | payer SELFPAY ==
[2016-09-23 05:40] LABS: Basophils % (Auto) 0.8 % (0.0-1.8); Eosinophils % (Auto) 1.8 % (0.0-4.3); Hematocrit 34.6 % (30.3-42.9); Hemoglobin 11.6 gm/dl (10.1-14.3); Mean Corpuscular HGB Conc 34 % (30-34); Mean Corpuscular Hemoglobin 29 pg (28-32); Mean Corpuscular Volume 85 fl (79-97); Platelet Count 235 K/mm3 (140-440); Red Blood Count 4.06 M/mm3 (3.65-5.03); Red Cell Distribution Width 16.6 % (13.2-15.2); White Blood Count 7.3 K/mm3 (4.5-11.0)
[2016-09-23 05:58] LABS: Anion Gap 20 mmol/L; Blood Urea Nitrogen 8 mg/dL (7-17); Calcium 9.1 mg/dL (8.4-10.2); Carbon Dioxide 19 mmol/L (22-30); Chloride 102.4 mmol/L (98-107); Glucose 130 mg/dL (65-100); Potassium 4.7 mmol/L (3.6-5.0); Sodium 137 mmol/L (137-145)
[2016-09-23 06:04] LABS: Bilirubin,Urine NEG (Negative); Blood,Urine MOD (Negative); Ketones,Urine NEG (Negative); Leukocyte Esterase,Urine NEG (Negative); Mucus,Urine FEW /HPF; Nitrite,Urine NEG (Negative); Protein,Urine <15 mg/dL mg/dL (Negative); Urobilinogen,Urine < 2.0 mg/dL (<2.0)
--- NOTE | 2016-09-23 07:16 | XRay Report ---
ROUTINE CHEST, TWO VIEWS: HISTORY: Shortness of breath. Compared to 07/19/16. Mild improvement in pulmonary venous congestion is demonstrated. Pulmonary vascularity is within normal limits. Borderline cardiomegaly is stable. Trace pleural effusions are suspected on the lateral image. The lungs are clear otherwise. IMPRESSION: Borderline heart size. Trace pleural effusions. Minimal improvement is demonstrated since 07/19/16.
[2016-09-23] MEDS ORDERED: MORPHINE IV ONE (11:16)
--- NOTE | 2016-09-23 11:27 | Emergency Department Report ---
HPI - General Chief Complaint: Chest Pain Time Seen by Provider: 09/23/16 11:13 - HPI HPI: PATIENT WITH H/O CHF, HTN, CARDIOMYOPATHY WITH LOW EF, IS HERE TODAY WITH CHEST PAIN, SUBSTERNAL WITHOUT RADIATION. PATIENT WAS ADMITTED IN JULY THIS YEAR WITH SIMILAR EPISODES, BUT HAS NOT TAKEN ANY MEDICATIONS SINCE DISCHARGE DUE TO LACK OF INSURANCE. NO FEVER, BUT HAS SOB, AT REST AND WITH EXERTION. ED Past Medical Hx - Past Medical History Previous Medical History?: Yes Hx Congestive Heart Failure: Yes Additional medical history: thyroid - Surgical History Past Surgical History?: No - Social History Smoking Status: Former Smoker Substance Use Type: Alcohol - Medications Home Medications: Home Medications Medication Instructions Recorded Confirmed Last Taken Type Acetaminophen [Acetaminophen TAB] 325 mg PO Q6H PRN #30 tablet 07/23/16 Unknown Rx Aspirin 81 mg PO DAILY #30 tab 07/23/16 09/23/16 Unknown Rx Methimazole [Tapazole] 5 mg PO Q8HR #90 tablet 07/23/16 09/23/16 09/21/16 Rx Quetiapine Fumarate [SEROquel XR] 600 mg PO QHS #30 07/23/16 09/23/16 Unknown Rx Zolpidem [Ambien] 10 mg PO QHS PRN #10 tablet 07/23/16 09/23/16 Unknown Rx Furosemide [Lasix TAB] 40 mg PO QDAY #30 tablet 07/24/16 09/23/16 Unknown Rx Lisinopril [Zestril TAB] 5 mg PO QDAY #30 tablet 07/25/16 09/23/16 Unknown Rx Metoprolol Xl [Metoprolol 100 mg PO QDAY #30 tablet 07/25/16 09/23/16 Unknown Rx SUCCINATE ER TAB] Spironolactone [Aldactone] 25 mg PO QDAY #30 tablet 07/25/16 09/23/16 Unknown Rx ED Review of Systems ROS: Stated complaint: CHEST PAIN/MISSY Other details as noted in HPI Comment: All other systems reviewed and negative Cardiovascular: chest pain, edema Gastrointestinal: as per HPI Physical Exam - Physical Exam Vital Signs: Vital Signs 09/23/16 05:14 Temperature 98.9 F Pulse Rate 103 H Respiratory 18 Rate Blood Pressure 152/101 O2 Sat by Pulse 100 Oximetry Physical Exam: gen: alert and oriented x3 heent: perrla, eomi cv: rrr, nl s1, s2, SEVERE JVD BILAT. lungs: cta bila abd: s,nt,nd, pos bs ext: no edema gu: pt refused neuro: no deficits psych: normal mood, ED Course Vital Signs 09/23/16 05:14 Temperature 98.9 F Pulse Rate 103 H Respiratory 18 Rate Blood Pressure 152/101 O2 Sat by Pulse 100 Oximetry ED Medical Decision Making - Lab Data Result diagrams: 09/23/16 05:24 09/23/16 05:24 Critical care attestation.: If time is entered above; I have spent that time in minutes in the direct care of this critically ill patient, excluding procedure time. ED Disposition Clinical Impression: Chest pain, Acute exacerbation of CHF (congestive heart failure) Disposition: OP ADMIT IP TO THIS HOSP Is pt being admited?: Yes Does the pt Need Aspirin: Yes Condition: Stable Instructions: Chest Pain (ED) Referrals: PRIMARY CARE, [Primary Care Provider] - 3-5 Days
[2016-09-23] MEDS ORDERED: ASPIRIN PO SCH (12:00)
--- NOTE | 2016-09-23 12:05 | Admit Criteria Form ---
Admission Criteria Documentation: CARDIOLOGY GRG Clinical Indications for Admission to Inpatient Care (Welcome/check or initial the applicable condition/criteria) Hospital admission is needed for appropriate care of the patient because of ANY ONE of the following: [ ] I. Hemodynamic instability as indicated by ALL of the following (1)(2)(3) (4)(5)(6)(7)(8)(9)(10) [ ]a) Vital sign abnormality not readily corrected by appropriate treatment with 12-24 hours for ANY ONE: [ ]i) Hypotension that persists despite appropriate treatment (eg, volume repletion) [ ]ii) Tachycardiathat persists despite appropriate tx ( e.g., analgesia, fluids, sedation as indicated [ ]iii) Orthostatic vital sign changes that persists despite appropriate treatment (eg, volume repletion) [ ]b) Vital sign abnormailty that is severe indicated by ANY ONE of the following: [ ]i) Inadequate perfusion indicated by ANY ONE of the following: [ ] 1) Lactic acidosis (> 2 mmol/L) [ ] 2) New abnormal capillary refill (> 3 seconds) [ ] 3) Reduced urine output [ ] 4) New altered mental status [ ] 5) Myocardial Ischemia [ ] 6) Other metabolic acidosis (arterial pH <7.35 ) not otherwise explained. [ ]ii) Mean arterial pressure[A] less than 60 mm Hg [ ]iii) Mean arterial pressure[A] less than 70 mm Hg after 30 minutes of appropriate treatment (eg, fluid resuscitation) [ ]iv) Sustained heart rate greater than 120 beats per minute in adult or child 6 years or older[B] [ ]v) IV inotropic or vasopressor medication required to maintain adequate blood pressure or perfusion [ ] II. Severe heart failure as indicated by ANY ONE of the following(17)(18) [ ]a) Respiratory distress [ ]b) Hypotension [ ]c) Debilitating anasarca refractory to therapy (eg, tissue breakdown with infection)[C](19) [ ]d) Cardiac arrhythmias of immediate concern [ ]e) Myocardial ischemia [ ] III. Cardiac arrhythmias or findings of immediate concern indicated by ANY ONE of the following (21)(22): [ ] a) Heart rhythms that are inherently dangerous or unstable indicated by ANY ONE of the following (23)(24)(25): [ ] i) Resuscitated ventricular fibrillation or cardiac arrest [ ] ii) Ventricular escape rhythm [ ] iii) Sustained ventricular tachycardia (30 seconds or more of ventricular rhythm at greater than 100 beats per minute) [ ] iv) Nonsustained ventricular tachycardia and ANY ONE of the following: [ ] 1) Suspected cardiac ischemia as cause or consequence of ventricular tachycardia [ ] 2) Acute myocarditis [ ] b) Unstable cardiac conduction defects indicated by ANY ONE of the following(25)(26)(27) [ ] i) Type II second-degree atrioventricular block [ ]ii) Third-degree atrioventricular block [ ]iii) New-onset left bundle branch block with suspected myocardial ischemia [ ]c) Any heart rhythm and ANY ONE of the following (23)(24)(28)(29) (30) [ ] i) Continuous long-term ECG monitoring needed (e.g., initiation of drug requiring monitoring for more than 24 hours) [ ] ii) Patient has automatic implanted cardioverter defibrillator that is repeatedly firing, malfunctioning, or in need of immediate adjustment of settings beyond the scope of ambulatory or observation care [ ]d) Heart rhythms of concern due to ANY ONE of the following: [ ] i) Hypotension [ ] ii) Respiratory distress [ ] iii) Association with other significant symptoms (e.g., bradycardia with syncope or ongoing dizziness, supraventricular tachycardia with chest pain (28)(29)(31) [ ] IV. Monitoring for cardiac contusion beyond the scope of observation care needed [A](32)(33)(34) [ ] V. Surgical or device complication (e.g., valve replacement complication , ICD disfunction or pacemaker dysfunction) (49)(50)(51)(52)(53)(54) [ ] . Inpatient palliative care needed. [F](51)(52) Also use Inpatient Palliative Care Criteria [ ] VII. Nonbacterial thrombotic (marantic) endocarditis(43)(44)(55)(56)(57) [X ] VIII. Cardiology condition, symptom, or finding for which emergency and observation care has failed or are not considered appropriate. [ ] IX. Acute valvular disease requiring inpatient as indicated by ANY ONE of the following (40)(41) [ ]a) Acute valvular regurgitation (42) [ ]b) Noninfectious valvulitis (43)(44) [ ]c) Obstructive valve thrombosis (45)(46) [ ]d) Paravalvular leak(47)(48) [ ]e) Other significant valvular disorder remaining after emergency or observation level of care (as appropriate) [ ]X. Pericardial disease requiring inpatient treatment as indicated by ANY ONE of the following (35)(36)(37)(38) [ ]a) Suspected tamponade [ ]b) Hemopericardium [ ]c) Other significant pericardial disorder remaining after emergency or observation level of care (as appropriate)(39) [ ] XI. Cardiac ischemia beyond scope of emergency and observation care. [ ] XII. Cyanotic heart disease requiring inpatient care as indicated by 1 or more of the following(58)(59)(60): [ ]a) Acute onset of hypoxemia [ ]b) Exacerbation [ ] XIII. Hypertension requiring inpatient treatment as indicated by ANYONE of the following(11)(12)(13)(14): [ ]a) Severe hypertension (SBP greater than 180 mm Hg or DBP greater than 110 mm Hg, or greater than the 95th percentile for age, gender, and height in pediatric patients) that cannot be controlled (eg, to SBP less than 160 mm Hg and DBP less than 100 mm Hg) by emergency department or observation care treatment(15) [ ]b) Acute end organ damage secondary to hypertension (SBP greater than 140 mm Hg or DBP greater than 90 mm Hg) as indicated by ANYONE of the following: [ ] i) Hypertensive encephalopathy (eg, Altered mental status)(16) [ ] ii) Cerebral infarction [ ] iii) Intracranial hemorrhage [ ] iv) Myocardial ischemia or infarction [ ] v) Heart failure (eg, pulmonary edema) [ ] vi) Aortic dissection [ ] vii) Increased creatinine (new) with reduction of more than 50% in estimated glomerular filtration rate from baseline [ ] viii) Papilledema [ ] ix) Retinal hemorrhage [ ] x) Microangiopathic hemolytic anemia [ ] xi) Seizure [ ] xii) Other significant finding secondary to hypertension [ ] XIV. Complications of transplanted heart indicated by ANY ONE of the following(61): [ ]a) Acute graft rejection requiring inpatient management (eg, intravenous imunosuppression)(62)(63) [ ]b) Acute graft heart failure indicated by ANY ONE of the following(64): [ ] i) Hemodynamic instability [ ] ii) Cardiac arrhythmias of immediate concern [ ] iii) Pulmonary edema that is very severe (eg, mechanical ventilation needed, imminent or likely, need for 100% oxygen to keep oxygen saturation above 90%) [ ] iv) Pulmonary edema that is persistent as indicated by ALL of the following: [ ] 1) New need for oxygen therapy to keep oxygen saturation above 90 % (or increased FiO2 need from baseline) [ ] 2) Has not improved sufficiently with emergency department or observation care IV diuretics or other heart failure treatments[E]. [ ] iv) Altered mental status that is severe or persistent [ ] iv) Increased creatinine (new on laboratory test) with reduction of more than 50% in estimated glomerular filtration rate from baseline [ ] iv) Progressively (ongoing) rising creatinine (known from past laboratory test) with reduction of more than 25% in estimated glomerular filtration rate from baseline [ ] iv) Acute renal failure [ ] iv) Acute peripheral ischemia (eg, examination shows pulseless, cool, mottled, or cyanotic extremity) [ ] iv) Pulmonary artery catheter monitoring needed [ ] iv) Other sign or symptom of heart failure requiring inpatient treatment (ie, too severe or not responsive to outpatient and observation care treatment) [ ]c) Infection requiring inpatient management (eg, Hemodynamic instability, need for intravenous antimicrobial treatment)(66)(67)(68)(69)(70) [ ]d) Cardiac allograft vasculopathy requiring inpatient management (eg evidence of cardiacischemia)(71) [ ]e) Other complication of transplanted heart (eg, stroke, severe pulmonary hypertension, severe valvular dysfunction) requiring inpatient management(72) The original [email or web address] content created by [email or web address] has been revised. The portions of the content which have been revised are identified through the use of italic text or in bold, and [facility] has neither reviewed nor approved the modified material. All other unmodified content is copyright [facility]. Please see references footnoted in the original [facility] edition 2017 Admission Criteria Met: Yes
[2016-09-23] MEDS ORDERED: NITROSTAT SL PRN (13:30)
[2016-09-23] MEDS ORDERED: NITRO-BID 2% TP SCH (14:00)
--- NOTE | 2016-09-23 15:40 | Cat Scan Report ---
CTA CHEST: History: Shortness of breath Technique: Helical CT following IV contrast. Pulmonary embolus protocol. Sagittal and coronal reformatted images. Rotational MIP images. Findings: Contrast bolus is satisfactory. No pulmonary embolus is identified. There is mild cardiomegaly, mild vascular congestion and small layering right pleural effusion. The thyroid gland, tracheobronchial tree, esophagus, pericardium, mediastinal vessels, lung arce and bony thorax are unremarkable. Impression: No evidence for pulmonary embolus. Findings compatible with mild CHF.
[2016-09-23 16:17] LABS: Urine Drugs of Abuse Note Disclamer
[2016-09-23] MEDS ORDERED: APRESOLINE IV ONE (16:23)
[2016-09-23] MEDS ORDERED: ZOFRAN ONE (17:33)
[2016-09-23] MEDS ORDERED: ZOFRAN IV ONE (17:38)
[2016-09-23 18:14] VITALS: BP 173/95
[2016-09-23] MEDS ORDERED: NACL 0.9% 500 ML 500 ML ONE (19:20)
[2016-09-23] MEDS ORDERED: NACL 0.9% 500 ML 500 ML IV ONE (19:26)
--- NOTE | 2016-10-02 07:49 | Short Stay Summary ---
Short Stay Documentation Date of service: 09/23/16 Narrative H&P: 46 YO Female with CHF, Hypothyroidism presents to ED for evaluation of Chest pain. Pt seen and evaluated in ED. Pt underwent serial cardiac enzymes, ekg, telemetry, which was negative for acute ischemia. Pt medically optimized and back to usual state of health. Pt instructed to resume all prehospital medication, and to f/u pcp 1wk, cardilogy 1wk. - History Past Medical History: heart failure, hypothyroidism Past Surgical History: No surgical history, Other (reviewed) Social history: no significant social history, other (reviewed) - Allergies and Medications Current Medications: Allergies No Known Allergies Allergy (Verified 07/19/16 11:28) Home Medications Medication Instructions Recorded Confirmed Last Taken Type Acetaminophen [Acetaminophen TAB] 325 mg PO Q6H PRN #30 tablet 07/23/16 Unknown Rx Aspirin 81 mg PO DAILY #30 tab 07/23/16 09/23/16 Unknown Rx Methimazole [Tapazole] 5 mg PO Q8HR #90 tablet 07/23/16 09/23/16 09/21/16 Rx Quetiapine Fumarate [SEROquel XR] 600 mg PO QHS #30 07/23/16 09/23/16 Unknown Rx Zolpidem [Ambien] 10 mg PO QHS PRN #10 tablet 07/23/16 09/23/16 Unknown Rx Furosemide [Lasix TAB] 40 mg PO QDAY #30 tablet 07/24/16 09/23/16 Unknown Rx Lisinopril [Zestril TAB] 5 mg PO QDAY #30 tablet 07/25/16 09/23/16 Unknown Rx Metoprolol Xl [Metoprolol 100 mg PO QDAY #30 tablet 07/25/16 09/23/16 Unknown Rx SUCCINATE ER TAB] Spironolactone [Aldactone] 25 mg PO QDAY #30 tablet 07/25/16 09/23/16 Unknown Rx Aspirin [Aspirin BABY CHEW TAB] 81 mg PO QDAY #30 tab.chew 09/23/16 Unknown Rx Furosemide [Lasix TAB] 40 mg PO QDAY #30 tablet 09/23/16 Unknown Rx Lisinopril [Zestril TAB] 5 mg PO QDAY #30 tablet 09/23/16 Unknown Rx Methimazole [Tapazole] 5 mg PO Q8H #90 tab 09/23/16 Unknown Rx Metoprolol Xl [Metoprolol 100 mg PO QDAY #30 tablet 09/23/16 Unknown Rx SUCCINATE ER TAB] Spironolactone [Aldactone] 25 mg PO QDAY #30 tablet 09/23/16 Unknown Rx - Physical exam General appearance: no acute distress Lungs: Clear to auscultation Breasts: normal Gastrointestinal: normal Female Genitourinary: normal Rectal Exam: normal exam-external/orifice Extremities: no ischemia Neurological: Normal gait - Disposition Condition at discharge: Stable Disposition: DC-01 TO HOME OR SELFCARE - Discharge Diagnoses (1) Atypical chest pain Status: Acute Comment: resume home medication: f/u pcp 1wk, (2) GERD (gastroesophageal reflux disease) Status: Acute Qualifiers: Esophagitis presence: E Comment: F/U pcp 1wk, ppi therapy Short Stay Discharge Plan Follow up with: PRIMARY CARE,MD [Primary Care Provider] - 3-5 Days Prescriptions: Aspirin [Aspirin BABY CHEW TAB] 81 mg PO QDAY #30 tab.chew Furosemide [Lasix TAB] 40 mg PO QDAY #30 tablet Lisinopril [Zestril TAB] 5 mg PO QDAY #30 tablet Methimazole [Tapazole] 5 mg PO Q8H #90 tab Metoprolol Xl [Metoprolol SUCCINATE ER TAB] 100 mg PO QDAY #30 tablet Spironolactone [Aldactone] 25 mg PO QDAY #30 tablet
== END 2016-09-23 20:02 | disposition admitted as inpatient to this hospital (09) ==
LOC: ED 04:57
DX: I50.9 Heart failure, unspecified (principal); R07.9 Chest pain, unspecified; Z87.891 Personal history of nicotine dependence
CPT/HCPCS: 36415; 71020; 71275; 80048; 80307; 81001; 84439; 84443; 84481; 84484; 84703; 85025; 85379; 93005; 93010; 96361; 96374; 96375; 99285; J0360; J2270; J2405; J7040; Q9967

== ENCOUNTER 2017-05-15 14:56 | Emergency (ER) | payer OTHER ==
[2017-05-15] MEDS ORDERED: MOTRIN PO ONE (16:40)
[2017-05-15] MEDS ORDERED: NORCO 7.5/325 PO ONE (16:40)
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
[2017-05-15 19:28] VITALS: BP 101/76
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
== END 2017-05-15 19:30 | disposition home or self-care (01) ==
LOC: ED 14:56
DX: S09.90XA Unspecified injury of head, initial encounter (principal); V43.52XA Car driver injured in collision with other type car in traffic accident, initial encounter; I11.0 Hypertensive heart disease with heart failure; I50.9 Heart failure, unspecified; F17.200 Nicotine dependence, unspecified, uncomplicated; Y93.89 Activity, other specified; Y92.89 Other specified places as the place of occurrence of the external cause; Y99.8 Other external cause status
CPT/HCPCS: 70450; 71046